=== PATIENT | male | born 1945 | race Caucasian/White ===

== ENCOUNTER → 2017-09-16 10:20 | Outpatient (CLI) | payer MEDICARE, OTHER, SELFPAY ==
[2017-09-16 12:29] LABS: ALB/GLOB Ratio 1.1 RATIO (0.9-2.4); AST(SGOT) 15 U/L (15-37); Alanine Aminotransfer ALT/SGPT 23 U/L (16-61); Albumin, Serum 3.6 g/dL (3.2-5.0); Alkaline Phosphatase 66 U/L (45-117); Anion Gap 5 (5-15); BUN 29 mg/dL (7-18); BUN/Creat Ratio 21.2 RATIO (10-20); Calcium,Total 8.9 mg/dL (8.5-10.1); Chloride 105 mmol/L (98-107); Cholesterol 140 mg/dL (200); Creatinine, Serum 1.37 mg/dL (0.70-1.30); EST Glomerular Filtration Rate 54 mL/min (>60); Est Glom Filt Rate - Afr Amer 65 mL/min (>60); Globulin 3.3 g/dL (2.2-4.2); Glucose 93 mg/dL (74-106); High Density Lipoprotein 39 mg/dL; PSA,Total - Annual Screen 7.17 ng/mL (0.00-4.00); Potassium 4.6 mmol/L (3.5-5.1); Protein, Total 6.9 g/dL (6.4-8.2); Sodium Level 140 mmol/L (136-145); Triglycerides 141 mg/dL; Very Low Density Lipoprotein 28 mg/dL (5-40)
== END ==
PROVIDERS: Family Provider Family Medicine; PCP Family Medicine; Visit Provider Family Medicine
DX: Z00.00 Encounter for general adult medical examination without abnormal findings (principal); Z12.5 Encounter for screening for malignant neoplasm of prostate
CPT/HCPCS: 36415; 80053; 80061; 84153; G0103

== ENCOUNTER 2017-09-19 16:47 | Emergency (ER) | payer MEDICARE, OTHER, SELFPAY ==
[2017-09-19 16:48] VITALS: BP 116/76; PULSE 71; RESP 16; TEMP 36.7; O2SAT 96; BMI 32.3
--- NOTE | 2017-09-19 17:11 | ED.VISSUMM ---
- ER Visit Summary Date of Service: 09/19/17 Chief Complaint: Laceration palm left hand History of Present Illness: The patient is a 71 M who is right-handed presents with laceration palm of left hand. This occurred prior to arrival. He cut himself with a box lining machine feeder. Last tetanus shot one year ago. He denies paresthesia, anesthesia motor weakness. He is on no anticoagulants. He has no other complaints. Physical Examination: Vital signs are normal. He has a 1.9 cm linear laceration thenar eminence left hand. Sensation in the thumb and index finger are normal. Patient has full active range of motion of the thumb i.e. extension, flexion, abduction and adduction. There is full flexion and extension of the index and long finger. Sensations intact. Capillary refill is normal. Test Results: Not indicated Emergency Department Course and Treatment: Patient's laceration is gaping and will require repair. The wound was prepped draped sterile manner. The wound was incised with some lidocaine by local infiltration. The wound was irrigated with normal saline. Using 5-0 Ethilon simple interrupted sutures were placed. Treatment Plan: Appropriate home-going instruction for wound care status post suturing Disposition: Discharged home in stable improved condition Impression: 1.9 cm laceration thenar eminence left hand initial encounter This note was generated with [employer] dictation software. It may contain incorrect words, spelling, and punctuation that were not noted in review of the chart prior to signing ED Disposition - Plan for ED Patient: Disposition: Home or Assisted Living Chief Complaint: Laceration Instructions: ED Laceration Hand Referrals: Malik Addison MD [Primary Care Provider] - 10 Day for suture removal Additional Instructions: Clean wound with peroxide and Q-tip 3 times a day then apply bacitracin ointment.
== END 2017-09-19 18:02 | disposition home or self-care (01) ==
PROVIDERS: Emergency Provider Emergency Medicine; Family Provider Family Medicine; PCP Family Medicine
DX: S61.412A Laceration without foreign body of left hand, initial encounter (principal); W26.8XXA Contact with other sharp object(s), not elsewhere classified, initial encounter; Y93.9 Activity, unspecified; Y92.89 Other specified places as the place of occurrence of the external cause; Y99.9 Unspecified external cause status
CPT/HCPCS: 12001; 99284

== ENCOUNTER → 2017-10-28 13:37 | Outpatient (CLI) | payer MEDICARE, OTHER, SELFPAY ==
--- NOTE | 2017-10-28 13:39 | BI_ITS ---
MAMMOGRAPHY - BILATERAL DIAGNOSTIC REASON FOR EXAM: Male, 72 years old. 3-4 month history of right breast tenderness. History of recent right breast injury. PERTINENT HISTORY: Sister with breast cancer. TECHNIQUE: Digital bilateral breast che (3D mammographic acquisition) in the CC and MLO projections. 2-D mediolateral oblique (MLO) and craniocaudad (CC) views of both breasts were obtained. CAD: Full Field Digital Mammography with Computer Added Detection was performed. COMPARISON: None. FINDINGS: Breast Composition: The breasts are almost entirely fatty. There are no dominant masses or suspicious calcifications. Increased fibroglandular tissue in the retroareolar region of the right breast as compared to the left side. This may represent gynecomastia. Correlation with ultrasound is recommended. No other significant abnormalities are identified. BI/DIAG MAMM W/CAD, BILAT IMPRESSION: Asymmetrical breast tissue were more breast tissue is seen in the retroareolar region of the right breast as compared to the left side. Correlation with ultrasound is recommended. ASSESSMENT CATEGORY: BIRADS Category 0: Incomplete. Need additional imaging evaluation. A letter regarding these results will be sent to the patient by the facility within 30 days. Approximately 10% of breast cancers are not detected by mammography. A normal mammogram should not delay biopsy of a clinically suspicious abnormality. Electronically Signed: Florencio Deleon MD at 8:07 EDT Tel [phone], Service support ,
--- NOTE | 2017-10-28 14:30 | US_ITS ---
STUDY: ULTRASOUND BREAST - RIGHT REASON FOR EXAM: Male, 72 years old. Pain in the right breast. TECHNIQUE: Axial and longitudinal images of the RIGHT breast were performed with a high resolution ultrasound transducer. COMPARISON: Comparison is made with prior mammogram done earlier today. FINDINGS: RIGHT Breast: In the retroareolar region of the breast corresponding to the palpable abnormality, there is a 1.7 cm x 2 cm x 0.6 cm irregular hypoechoic density. A biopsy is recommended. US/Breast Limited Unilateral IMPRESSION: The palpable abnormality corresponds to a 1.7 cm x 2 cm x 0.6 cm irregular hypoechoic density, a biopsy is recommended. ASSESSMENT CATEGORY: BIRADS Category 4: Suspicious - Biopsy Should Be Considered. A letter regarding these results will be sent to the patient by the facility within 30 days. Electronically Signed: Florencio Deleon MD at 8:10 EDT Tel [phone], Service support ,
== END ==
PROVIDERS: Family Provider Family Medicine; PCP Family Medicine; Visit Provider Family Medicine
DX: N64.4 Mastodynia (principal)
CPT/HCPCS: 76642; 77062; 77066; G0279

== ENCOUNTER → 2017-11-14 08:20 | Outpatient (CLI) | payer MEDICARE, OTHER, SELFPAY ==
--- NOTE | 2017-11-14 | BRBX_PTH ---
PATIENT: JESUS MANUEL MARINA LOC: [facility] U#:[id number] AGE/SX: 79/M ROOM: RE11/14/[address]: Dr. Bernard Mac MD : 1945 BED: DIS: SPEC #: [id number] RECD: 11/14/17 14:41 STATUS: ALEX NAPOLEON #: [id number] KESHA: 11/14/17 00:[address]: Bernard Mac DEPT: SURGICAL PATHOLOGY RECD BY: Victoriano Herrera ENTERED: 11/14/17 14:42 SP TYPE: BREAST BX OTHR DR: Dr. Malik Addison MD Tissues: Right breast, NOS Procedures: Surgery Specimen Level IV HEADER OPERATION: Right breast biopsy PRE-OP DIAGNOSIS: Right breast mass TISSUE SUBMITTED: Right breast tissue ISCHEMIC TIME: <1 minute FIXATION TIME: 11 hours MICROSCOPIC DIAGNOSIS Right breast mass, core biopsy: Consistent with gynecomastia. AM:dano 11/15/17 MICROSCOPIC DESCRIPTION Slides are reviewed. GROSS DESCRIPTION Received in fixative is one container labeled with the patient's name and designated right breast. The specimen consists of multiple elongated fragments of beltran-yellow fibroadipose tissue that in aggregate measure 1.5 x 0.3 x 0.1 cm. The entire specimen is submitted in one cassette. / SJ:rg 11/14/17 TC:5 CPT: 06507
== END ==
PROVIDERS: Family Provider Family Medicine; PCP Family Medicine; Visit Provider Surgery
DX: N63.10 Unspecified lump in the right breast, unspecified quadrant (principal)
CPT/HCPCS: 88305

== ENCOUNTER → 2018-01-23 14:31 | Outpatient (CLI) | payer MEDICARE, OTHER, SELFPAY ==
[2018-01-23 15:19] LABS: PSA,Total- Diagnostic 7.88 ng/mL (0.0-4.0)
== END ==
PROVIDERS: Family Provider Family Medicine; PCP Family Medicine; Visit Provider Nurse Practitioner Adult Health
DX: R97.20 Elevated prostate specific antigen [PSA] (principal)
CPT/HCPCS: 36415; 84153

== ENCOUNTER → 2018-04-19 10:07 | Outpatient (CLI) | payer MEDICARE, OTHER, SELFPAY ==
[2018-04-19 12:20] LABS: Anion Gap 9 (5-15); BUN 32 mg/dL (7-18); BUN/Creat Ratio 21.3 RATIO (10-20); Calcium,Total 8.7 mg/dL (8.5-10.1); Chloride 105 mmol/L (98-107); Cholesterol 166 mg/dL (200); EST Glomerular Filtration Rate 49 mL/min (>60); Est Glom Filt Rate - Afr Amer 59 mL/min (>60); Glucose 76 mg/dL (74-106); High Density Lipoprotein 39 mg/dL; Potassium 4.5 mmol/L (3.5-5.1); Sodium Level 143 mmol/L (136-145); Triglycerides 186 mg/dL; Very Low Density Lipoprotein 37 mg/dL (5-40)
--- OUTSIDE RECORDS SUMMARY | 2018-06-05 10:27 | XMS RPT_ITS ---
:1945 Author Organization OHIP Care Team Providers Name Role Phone Malik Addison Attending Unavailable Malik Addison Primary Care Unavailable Malik Addison Attending Unavailable Malik Addison Primary Care Unavailable Malik Addison Primary Care Unavailable Elder, Fuad Attending Unavailable Alma Macedo Attending Unavailable Malik Addison Primary Care Unavailable Malik Addison Attending Unavailable Malik Addison Primary Care Unavailable Bernard Mac Attending Unavailable Malik Addison Referring Unavailable Malik Addison Primary Care Unavailable Bernard Mac Attending Unavailable CeBernard jimenez Referring Unavailable Malik Addison Primary Care Unavailable Bernard Mac Attending Unavailable Malik Addison Referring Unavailable Malik Addison Primary Care Unavailable PROBLEMS PROBLEMS DATE TYPE CONDITION / CODE ATTENDING STATUS SOURCE 04/19/2018 Unknown E78.00 - Malik Vigil Active [facility] hypercholesterole [facility] june, unspecified Hospital / E78.00(ICD-10) Repository 04/19/2018 Unknown E87.6 - Malik Addison Active [facility] Hypokalemia / Community E87.6(ICD-10) Hospital Repository 01/23/2018 Unknown R97.20 - Elevated RemingtonAlma larson Active [place] prostate specific M Community antigen [PSA] / Hospital R97.20(ICD-10) Repository 11/14/2017 Unknown N63.10 - CebuBernard zee Active [facility] Unspecified lump Community in the right Hospital breast, Repository unspecified quadrant / N63.10(ICD-10) 10/28/2017 Unknown N64.4 - Malik Addison Active [facility] Mastodynia / Community N64.4(ICD-10) Hospital Repository PROCEDURES PROCEDURES No Procedure Records FoundRESULTS RESULTS BASIC METABOLIC Collected: 04/19/2018 Status: F Source: [place] PROFILE (BMP) 10:08 AM [facility] REPOSITORY TYPE CODE TESTS RESULT OUT OF RANGE REFERENCE UNITS LAB L501.0100 74-106 mg/dL Normal GLU 76 Result Comment: Please note revised GLUCOSE reference range effective 2017. LAB L501.1000 7-18 mg/dL High BUN 32 LAB L501.1100 0.70-1.30 mg/dL High CREAT,SERUM 1.50 Result Comment: The validity of the calculated GFR AND GFRAA in patients over 70 years has not been determined. Clinical correlation is essential. LAB L501.1110 >60 mL/min Low EST GFR 49 Result Comment: Non- GFR Calc LAB L501.1115 >60 mL/min Low EST GFR - AA 59 Result Comment: GFR Calc LAB L501.1300 10-20 RATIO High BUN/CRE 21.3 LAB L501.2200 8.5-10.1 mg/dL CA Normal 8.7 LAB L501.5300 136-145 mmol/L NA Normal 143 LAB L501.5600 3.5-5.1 mmol/L K Normal 4.5 LAB L501.5900 98-107 mmol/L CL Normal 105 LAB L501.6100 21.0-32.0 mmol/L Normal CO2 29.0 LAB L501.6200 5-15 Normal GAP 9 Performed By: #### L500.2500, L500.4100 #### [facility] [address] [place], [address] LIPID PROFILE Collected: 04/19/2018 Status: F Source: [place] 10:08 AM [facility] REPOSITORY TYPE CODE TESTS RESULT OUT OF RANGE REFERENCE UNITS LAB L501.4900 200 mg/dL Normal CHOL 166 Result Comment: <200 mg/dL Desirable 200-240 mg/dL Borderline >240 mg/dL High Risk LAB L501.5000 mg/dL Normal TRIG 186 Result Comment: The drugs N-Acetylcysteine and Metamizole may falsely depress this assay. Serum Triglycerides Reference Interval Normal <150 mg/dL Borderline high 150 - 199 mg/dL High 200 - 499 mg/dL Very High > or = 500 mg/dL LAB L501.6400 mg/dL Low HDL 39 Result Comment: The drugs N-Acetylcysteine and Metamizole may falsely depress this assay. Reference Range HDL <40 mg/dL Low HDL Cholesterol HDL >or= 60 mg/dL High HDL Cholesterol LAB L501.6500 0-130 mg/dL Normal LDL 90 LAB L501.6600 5-40 mg/dL Normal VLDL 37 Performed By: #### L500.2500, L500.4100 #### [facility] [address] [place], [address] PSA,TOTAL- DIAGNOSTIC Collected: 01/23/2018 Status: F Source: [place]ARA 2:37 PM [facility] REPOSITORY TYPE CODE TESTS RESULT OUT OF REFERENCE UNITS RANGE LAB L501.9940 0.0-4.0 ng/mL PSA, High DIAGNOSTIC 7.88 Result Comment: This test was performed using the TPSA assay method for the [employer] chemistry system. Values obtained with different assay methods cannot be used interchangably. When changing PSA assays in the course of monitoring a patient, additional sequential testing should be carried out to confirm baseline values. Performed By: #### L501.9940 #### [facility] [address] [place], [address] SURGERY VISIT REPORT Observed: 01/04/2018 Status: F Source: CLARA 7:04 PM [facility] REPOSITORY [facility] [address] [place] [address] OFFICE VISIT Date of Service: 01/04/18 MR#: [id number] Acct: [id number] Name: JESUS MANUEL MARINA Rep #: [id number] : 1945 Provider: Bernard Mac MD Age/Sex: 72/M Location: [facility] Status: Signed Intake Intake Visit Reasons: Rt Breast FNA FU Discuss Surgery Teacher Aide Required: No Is patient in pain?: No Allergies Penicillins [PCN] Allergy (Verified 01/04/18 14:39) Hives Medications gabapentin 300 mg capsule 300 mg PO TID 11/14/17 [History Confirmed 01/04/18] meloxicam 15 mg tablet 15 mg PO QDAY 11/14/17 [History Confirmed 01/04/18] metoprolol succinate ER 100 mg tablet,extended release 24 hr 100 mg PO QDAY 11/14/17 [History Confirmed 01/04/18] pantoprazole 40 mg tablet,delayed release 40 mg PO QDAY 11/14/17 [History Confirmed 01/04/18] potassium chloride ER 20 mEq tablet,extended release 20 meq PO BID 11/14/17 [History Confirmed 01/04/18] simvastatin 20 mg tablet 20 mg PO QPM 11/14/17 [History Confirmed 01/04/18] spironolactone 25 mg tablet 25 mg PO QDAY 11/14/17 [History Confirmed 01/04/18] tadalafil 5 mg tablet 5 mg PO ONCE 11/14/17 [History Confirmed 01/04/18] terazosin 5 mg capsule 5 mg PO QDAY 11/14/17 [History Confirmed 01/04/18] trazodone 100 mg tablet 100 mg PO QDAY 11/14/17 [History Confirmed 01/04/18] Subjective Details: This is a 72-year-old gentleman. On November 14, 2017 I did a guided needle core right breast biopsy. Findings gynecomastia. The patient had a ultrasound done at the [facility] on November 01, 2017. The lesion measured 1.7 x 2 x 0.6 cm. Initially got better. Now is having more pain. Returns for discussion. Today was a 30 minute discussion. Objective Details: Right breast rubbery mild slightly tender retroareolar mass with diffuse fibrofatty change of the right breast Left breast: Less distinct fibrofatty tissue. No particular tenderness. Assessment AND Plan Problems 1. Gynecomastia N62 Plan Today was a 30 minute consultative appointment. The patient has symptomatic gynecomastia of the right breast. On review his medications however he is on Spironolactone. I believe that prior to surgical intervention with subcutaneous mastectomy on the right that he should pursue consultation with Dr. Malik Addison regarding treatment options. Wonder if whether his Spironolactone which may be etiologic to his gynecomastia could be altered to a different medication. I did discuss right substance mastectomy. Patient was interested in whether a more aggressive resection could be performed. That would leave him asymptomatic. He does have a significant amount of fibrofatty tissue in both breasts. At the completion of the discussion I think it is pertinent for him to follow-up with primary care Dr. Malik Addison. I would have no way to guarantee that working on his right breast with completely resolve his issues and he may then develop symptomatic disease on the left as well. I am wondering whether he can have a medicine change it might resolve his issues. I appreciate the opportunity of assisting with surgical care Cc: Dr. Malik Mac M.D., F.A.C.S. Coding Level of Care Code Off vis,est,level 3 Diagnoses Gynecomastia N62 01/04/18 1904 <Electronically signed by Bernard Mac MD> Date Bernard Mac MD Cosigner Signature: Date (if applicable) CC: Malik Addison MD SURGERY VISIT REPORT Observed: 11/14/2017 Status: F Source: CLARA 8:51 AM [facility] [address] [place] [address]. [address] [place] [address] OFFICE VISIT Date of Service: 11/14/17 MR#: [id number] Acct: [id number] Name: JESUS MANUEL MARINA Rep #: [id number] : 1945 Provider: Bernard Mac MD Age/Sex: 72/M Location: [facility] Status: Signed Intake Vital Signs11/14/17 Height 5 ft 10 in 11/14/17 Weight: 229 lb 11/14/17 Body Mass Index (BMI) 32.8 Intake Visit Reasons: ABNORMAL US [facility] 10/28 Teacher Aide Required: No Is patient in pain?: No Allergies Penicillins [PCN] Allergy (Verified 11/14/17 08:01) Hives Medications gabapentin 300 mg capsule 300 mg PO TID 11/14/17 [History Confirmed 11/14/17] meloxicam 15 mg tablet 15 mg PO QDAY 11/14/17 [History Confirmed 11/14/17] metoprolol succinate ER 100 mg tablet,extended release 24 hr 100 mg PO QDAY 11/14/17 [History Confirmed 11/14/17] pantoprazole 40 mg tablet,delayed release 40 mg PO QDAY 11/14/17 [History Confirmed 11/14/17] potassium chloride ER 20 mEq tablet,extended release 20 meq PO BID 11/14/17 [History Confirmed 11/14/17] simvastatin 20 mg tablet 20 mg PO QPM 11/14/17 [History Confirmed 11/14/17] spironolactone 25 mg tablet 25 mg PO QDAY 11/14/17 [History Confirmed 11/14/17] tadalafil 5 mg tablet 5 mg PO ONCE 11/14/17 [History Confirmed 11/14/17] terazosin 5 mg capsule 5 mg PO QDAY 11/14/17 [History Confirmed 11/14/17] trazodone 100 mg tablet 100 mg PO QDAY 11/14/17 [History Confirmed 11/14/17] [facility] Medical History Hyperlipidemia (Chronic) Benign essential hypertension (Chronic) GERD (gastroesophageal reflux disease) (Acute) Surgical History H/O transurethral resection of prostate (Acute) H/O umbilical hernia repair (Acute) S/P bilateral inguinal hernia repair (Acute) S/P laparoscopic cholecystectomy (Acute) Family History Father Heart disease Hypertension Mother Diabetes Hypertension Sister Breast cancer Heart disease Social History Smoking Status: Former smoker alcohol intake: current alcohol intake frequency: holidays/special occasions only HPI HPI HPI: JESUS MANUEL MARINA, is a 72 M who presents to the office today for surgical consultation regarding a right breast mass. The patient is referred by Dr. Malik Addison and a written copy of my surgical consult recommendations will be returned to him. The patient resides over the winter in [place]. He was working with a board that then hit him in the right breast approximately 4 months ago. Since that time it is been tender. He did seek medical advice there and was placed on a course of antibiotics. Patient states that he never really felt a distinct mass but it has persisted being tender. Initially thought antibiotics might of improve things but now it has remained constant. He does have hyperlipidemia and hypertension and is on appropriate medications. At the [facility] on October 28, 2017 a right breast ultrasound BI-RADS Category 4 biopsy recommended because of 1.7 x 2 x 0.6 cm irregular hypoechoic density in the right retroareolar breast. Bilateral mammography was also obtained on October 28, 2017. Asymmetric breast tissue on the right retroareolar area was noted. This was not identified on the left. Patient's family history is notable that the patient has a sister who had breast cancer. The patient's mother had breast surgery sounding like a lumpectomy but final pathology did not confirm cancer. The patient's only anticoagulation is a low-dose aspirin. ROS General General: No weight change, appetite, fatigue, colon cancer, breast cancer or weakness HEENT HEENT: Yes eye injury and eye surgery; no difficulty swallowing, swollen glands or hoarseness Endo Endocrine: No thyroid disease, diabetes mellitus, thyroid cancer, Hair loss, heat intolerance or cold intolerance Skin Skin: Yes changing moles; no rash Breast Breast: Yes right breast lump; no left breast lump, nipple discharge, breast pain, abnormal mammogram, abnormal US or breast enlargement Musc Musculoskeletal: Yes back problems and arthritis; no rheumatoid arthritis, gout or joint pain Cardio Cardiovascular: Yes high blood pressure; no murmur, pacemaker, heart disease, atrial fibrillation, heart attack, heart stent, palpitations, shortness of breat with exertion or chest pain Psych Psychiatric: No depression, anxiety or hearing voices Resp Respiratory: No shortness of breath, No sleep apnea, No cough, No COPD, No asthma, No emphysema, No wheezing Gastro Gastrointestinal: Yes acid reflux, No abdominal pain, No nausea or vomiting, No diarrhea, No constipation, No blood in stool, No hemorrhoids, No ulcers, No gallbladder problem, No black,tarry stools Paulo Hematologic: Yes blood thinners, No blood disorders, No bleeding, No anemia, No blood clots Neuro Neurologic: No system reviewed and no additional complaints, except as docu, No as per HPI, No abnormal walking, No abnormal hearing, No abnormal movements, No abnormal speech, No behavioral changes, No burning sensations, No confusion, No seizure-like activity, No unsteadiness, No dizziness, No localized weakness, No frequent falls, No headache(s), No lack of coordination, No loss of vision, No memory loss, No numbness, No other visual disturbances, No radiating pain, No restless legs, No sensory deficit, No fainting, No tingling, No tremor(s), No weakness, No other Exam Chest Breast Palpation: No nipple discharge Other: Right breast: Slightly tender with nondescript fibrous retroareolar fullness. No nipple discharge. Some slight right axillary tenderness but no focal mass. Left breast: No similar fibrous fullness is on the right but some extra fibrofatty tissue. No axillary or clavicular adenopathy Cardio Heart Sounds: no murmurs Office Procedures Biopsy Provider Documentation Ultrasound-guided needle core right retroareolar breast biopsy Timeout and informed consent was obtained. 72-year-old gentleman was taken to the procedure room. He was placed on the table. A right shoulder roll was placed. The right breast was prepped with Betadine. 1% lidocaine mixed 50-50 with 0.5% Marcaine was used as a local anesthetic. Total of 10 cc was used. A small stab incision was created. A 14-gauge Monopty needle was advanced to prefire depth. Pre-and post fire films were obtained. 3 separate cores were obtained. A marking clip was left in position. Pressure was held for hemostasis. Steri-Strips Telfa OpSite dressings applied. He was given activity and wound care instructions. The specimens were immediately placed in formalin for analysis. Final pathology pending. Bernard Mac M.D., F.A.C.S. Biopsy Breast Biopsy: [id number] US Guidance Assessment AND Plan Problems 1. Breast mass, right N63.10 Plan I have reviewed the patient's presentation and imaging. His history of blunt trauma to the right breast is interesting but should have resolved after 4 months. I am recommending to him a ultrasound-guided needle core biopsy right retroareolar breast. I have described the technique, benefits, risks, alternatives. He has had an opportunity to ask and have questions answered. We will proceed and expedite his care today. I appreciate the opportunity of assisting with his surgical care He I am suspecting gynecomastia. If the pathology is consistent with the same and the patient may continue to utilize [id number]-[id number] medicine as needed for comfort. If the process remains symptomatic for more weeks and months in the future then we could consider a right breast subcutaneous mastectomy for gynecomastia. The patient and his are aware and will keep me informed. Cc: Dr. Azael Mac M.D., F.A.C.S. Orders Orders: Coding Level of Care Code No Charge Diagnoses Breast mass, right N63.10 Additional Codes Biopsy - Breast Biopsy: 92007 US Guidance (49911) 11/14/17 0851 <Electronically signed by Bernard Mac MD> Date Bernard Mac MD Cosigner Signature: Date (if applicable) CC: Malik Addison MD BREAST BIOPSY Observed: 11/14/2017 Status: F Source: CLARA (CHOOSE SITE) 12:00 AM [facility] REPOSITORY Patient: JESUS MANUEL MARINA : 1945 (72/M) Acct Num: [id number] Phys: Estefania FINE,Bernard [facility] Num: [id number] Loc: LABSPEC Specimen: [id number] Received: 11/14/17 - 1441 Spec Type: BREAST BX TISSUES TISSUES: Right breast, NOS GROSS DESCRIPTION Received in fixative is one container labeled with the patient's name and designated right breast. The specimen consists of multiple elongated fragments of beltran-yellow fibroadipose tissue that in aggregate measure 1.5 x 0.3 x 0.1 cm. The entire specimen is submitted in one cassette. / SJ:dano 11/14/17 TC :5 CPT: 26267 HEADER OPERATION: Right breast biopsy PRE-OP DIAGNOSIS: Right breast mass TISSUE SUBMITTED: Right breast tissue ISCHEMIC TIME: <1 minute FIXATION TIME: 11 hours MICROSCOPIC DESCRIPTION Slides are reviewed. MICROSCOPIC DIAGNOSIS Right breast mass, core biopsy: Consistent with gynecomastia. AM:dano 11/15/17 Signed [facility] 11/15/17 <signature on file> Performed By: #### PBRBX #### [facility] [address] [place], [place] [address]am[place], [address] BREAST LIMITED Observed: 10/28/2017 Status: F Source: [place] UNILATERAL 2:31 PM [facility] REPOSITORY [facility] Imaging Services [address] [place] [address] [place] [address] Breast Limited Unilateral MR#: [id number] Acct: [id number] Name: JESUS MANUEL MARINA Rep #: [id number] : 1945 M 72 From: Florencio Deleon MD PCP: Malik Addison MD Status: REG CLI Study: Breast Limited Unilateral Date of Exam: 10/28/17 Exam# [id number] Ordering Dr: Mailk Addison MD STUDY: ULTRASOUND BREAST - RIGHT REASON FOR EXAM: Male, 72 years old. Pain in the right breast. TECHNIQUE: Axial and longitudinal images of the RIGHT breast were performed with a high resolution ultrasound transducer. COMPARISON: Comparison is made with prior mammogram done earlier today. FINDINGS: RIGHT Breast: In the retroareolar region of the breast corresponding to the palpable abnormality, there is a 1.7 cm x 2 cm x 0.6 cm irregular hypoechoic density. A biopsy is recommended. US/Breast Limited Unilateral IMPRESSION: The palpable abnormality corresponds to a 1.7 cm x 2 cm x 0.6 cm irregular hypoechoic density, a biopsy is recommended. ASSESSMENT CATEGORY: BIRADS Category 4: Suspicious - Biopsy Should Be Considered. A letter regarding these results will be sent to the patient by the facility within 30 days. Electronically Signed: Florencio Deleon MD at 8:10 EDT Tel [phone], Service support , CC: Malik Addison MD Wind Operations Manager: Signed DIAG MAMM W/CAD, Observed: 10/28/2017 Status: F Source: [place] BILAT 1:41 PM [facility] REPOSITORY [facility] Imaging Services [address] [place] [id number] DIAG MAMM W/CAD, BILAT MR#: [id number] Acct: [id number] Name: JESUS MANUEL MARINA Rep #: [id number] : 1945 M 72 From: Florencio Deleon MD PCP: Malik Addison MD Status: REG CLI Study: DIAG MAMM W/CAD, BILAT Date of Exam: 10/28/17 Exam# [id number] Ordering Dr: Malik Addison MD MAMMOGRAPHY - BILATERAL DIAGNOSTIC REASON FOR EXAM: Male, 72 years old. 3-4 month history of right breast tenderness. History of recent right breast injury. PERTINENT HISTORY: Sister with breast cancer. TECHNIQUE: Digital bilateral breast che (3D mammographic acquisition) in the CC and MLO projections. 2-D mediolateral oblique (MLO) and craniocaudad (CC) views of both breasts were obtained. CAD: Full Field Digital Mammography with Computer Added Detection was performed. COMPARISON: None. FINDINGS: Breast Composition: The breasts are almost entirely fatty. There are no dominant masses or suspicious calcifications. Increased fibroglandular tissue in the retroareolar region of the right breast as compared to the left side. This may represent gynecomastia. Correlation with ultrasound is recommended. No other significant abnormalities are identified. BI/DIAG MAMM W/CAD, BILAT IMPRESSION: Asymmetrical breast tissue were more breast tissue is seen in the retroareolar region of the right breast as compared to the left side. Correlation with ultrasound is recommended. ASSESSMENT CATEGORY: BIRADS Category 0: Incomplete. Need additional imaging evaluation. A letter regarding these results will be sent to the patient by the facility within 30 days. Approximately 10% of breast cancers are not detected by mammography. A normal mammogram should not delay biopsy of a clinically suspicious abnormality. Electronically Signed: Florencio Deleon MD at 8:07 EDT Tel [phone], Service support , CC: Malik Addison MD Wind Operations Manager: Signed EMERGENCY DEPARTMENT Observed: 09/19/2017 Status: F Source: [place] SUMMARY 5:39 PM [facility] REPOSITORY [facility] Medical Records Department [address] [place] [address] Emergency Department Summary 09/19/17 1711 MR#: [id number] Acct: [id number] Name: JESUS MANUEL MARINA Rep #: [id number] : 1945 71 From: Fuad Elder MD PCP: Malik Addison MD Status: REG ER - ER Visit Summary Date of Service: 09/19/17 Chief Complaint: Laceration palm left hand History of Present Illness: The patient is a 71 M who is right- handed presents with laceration palm of left hand. This occurred prior to arrival. 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 Last tetanus shot one year ago. He denies paresthesia, anesthesia motor weakness. He is on no anticoagulants. He has no other complaints. Physical Examination: Vital signs are normal. He has a 1.9 cm linear laceration thenar eminence left hand. Sensation in the thumb and index finger are normal. Patient has full active range of motion of the thumb i.e. extension, flexion, abduction and adduction. There is full flexion and extension of the index and long finger. Sensations intact. Capillary refill is normal. Test Results: Not indicated Emergency Department Course and Treatment: Patient's laceration is gaping and will require repair. The wound was prepped draped sterile manner. The wound was incised with some lidocaine by local infiltration. The wound was irrigated with normal saline. Using 5-0 Ethilon simple interrupted sutures were placed. Treatment Plan: Appropriate home-going instruction for wound care status post suturing Disposition: Discharged home in stable improved condition Impression: 1.9 cm laceration thenar eminence left hand initial encounter This note was generated with [employer]Wu dictation software. It may contain incorrect words, spelling, and punctuation that were not noted in review of the chart prior to signing ED Disposition - Plan for ED Patient: Disposition: Home or Assisted Living Chief Complaint: Laceration Instructions: ED Laceration Hand Referrals: Malik Addison MD [Primary Care Provider] - 10 Day for suture removal Additional Instructions: Clean wound with peroxide and Q-tip 3 times a day then apply bacitracin ointment. What to do if you have Problems For any increased pain, shortness of breath, bleeding, nausea or vomiting, chest pain, or any unexpected problems, contact your Primary Care Provider. Call [facility] ([phone]) or report to the closest Emergency Room. Call 911 if necessary. 09/19/17 1739 <Electronically signed by Fuad Elder MD> Date Fuad Elder MD Cosigner Signature (If Indicated): Date CC: Malik Addison MD COMPREHENSIVE METABOLIC Collected: 09/16/2017 Status: F Source: [place] PEREZ 10:21 AM [facility] REPOSITORY TYPE CODE TESTS RESULT OUT OF RANGE REFERENCE UNITS LAB L501.0100 74-106 mg/dL Normal GLU 93 Result Comment: Please note revised GLUCOSE reference range effective 2017. LAB L501.1000 7-18 mg/dL High BUN 29 LAB L501.1100 0.70-1.30 mg/dL High CREAT,SERUM 1.37 Result Comment: The validity of the calculated GFR AND GFRAA in patients over 70 years has not been determined. Clinical correlation is essential. LAB L501.1110 >60 mL/min Low EST GFR 54 Result Comment: Non- GFR Calc LAB L501.1115 >60 mL/min Normal EST GFR - AA 65 Result Comment: GFR Calc LAB L501.1300 10-20 RATIO High BUN/CRE 21.2 LAB L501.1500 6.4-8.2 g/dL T Normal PROT 6.9 LAB L501.1800 3.2-5.0 g/dL Normal ALB 3.6 LAB L501.1950 2.2-4.2 g/dL Normal GLOB 3.3 LAB L501.2000 0.9-2.4 RATIO Normal A/G 1.1 LAB L501.2200 8.5-10.1 mg/dL CA Normal 8.9 LAB L501.4100 15-37 U/L Normal AST 15 LAB L501.4305 45-117 U/L Normal ALK P 66 LAB L501.4405 16-61 U/L Normal ALT 23 LAB L501.4600 0.20-1.00 mg/dL T Normal BILI 0.60 LAB L501.5300 136-145 mmol/L NA Normal 140 LAB L501.5600 3.5-5.1 mmol/L K Normal 4.6 LAB L501.5900 98-107 mmol/L CL Normal 105 LAB L501.6100 21.0-32.0 mmol/L Normal CO2 30.0 LAB L501.6200 5-15 Normal GAP 5 Performed By: #### L500.4050, L500.4100, L501.9910 #### [place] [facility] [address] [place], [place], [id number] LIPID PROFILE Collected: 09/16/2017 Status: F Source: CLARA 10:21 AM [facility] REPOSITORY TYPE CODE TESTS RESULT OUT OF RANGE REFERENCE UNITS LAB L501.4900 200 mg/dL Normal CHOL 140 Result Comment: <200 mg/dL Desirable 200-240 mg/dL Borderline >240 mg/dL High Risk LAB L501.5000 mg/dL Normal TRIG 141 Result Comment: The drugs N-Acetylcysteine and Metamizole may falsely depress this assay. Serum Triglycerides Reference Interval Normal <150 mg/dL Borderline high 150 - 199 mg/dL High 200 - 499 mg/dL Very High > or = 500 mg/dL LAB L501.6400 mg/dL Low HDL 39 Result Comment: The drugs N-Acetylcysteine and Metamizole may falsely depress this assay. Reference Range HDL <40 mg/dL Low HDL Cholesterol HDL >or= 60 mg/dL High HDL Cholesterol LAB L501.6500 0-130 mg/dL Normal LDL 73 LAB L501.6600 5-40 mg/dL Normal VLDL 28 Performed By: #### L500.4050, L500.4100, L501.9910 #### [facility] [address] [place], [address] PSA,TOTAL - ANNUAL Collected: 09/16/2017 Status: F Source: CLARA SCREEN 10:21 AM [facility] REPOSITORY TYPE CODE TESTS RESULT OUT OF REFERENCE UNITS RANGE LAB L501.9910 0.00-4.00 ng/mL High PSA,TOT 7.17 SCREEN Result Comment: This test was performed using the TPSA assay method for the [employer] chemistry system. Values obtained with different assay methods cannot be used interchangably. When changing PSA assays in the course of monitoring a patient, additional sequential testing should be carried out to confirm baseline values. Performed By: #### L500.4050, L500.4100, L501.9910 #### [facility] [address] [place], [address] ALLERGIES ALLERGIES DATE TYPE / CODE NAME / CODE REACTION SEVERITY SOURCE 01/04/2018 Drug Penicillins/ Hives Unknown [facility] Allergy/4160 [id number]( Hospital 42812(SNOMED XNORM) Repository CT) ENCOUNTERS ENCOUNTERS ADMIT/DISCHARGE ACCOUNT ADMITTING ENCOUNTER LOCATION SOURCE NUMBER CLASS 04/19/2018 [id number] Ambulatory [place] 2 [facility] ing:MFPLAB Repository 01/23/2018 [id number] Ambulatory [place] 3 [facility] ing:LAB.FUTUR Repository E 01/04/2018/ [id number] Ambulatory BMSBuilding:B [place] 8 1 [facility] Repository 11/14/2017 [id number] Ambulatory [place] 4 [facility] ing:LABSPEC Repository 11/14/2017/ [id number] Ambulatory BMSBuilding:B [place] 8 4 MS.[facility] Repository 10/28/2017 [id number] Ambulatory [place] 1 [facility] ing:OPBI Repository 09/19/2017/ [id number] Emergency [place] 8 6 [facility] ing:ED Repository 09/16/2017 [id number] Ambulatory [place] 9 [facility] ing:MFPLAB Repository PAYERS PAYERS ENCOUNTER GUARANTOR PAYER SUBSCRIBER SOURCE 04/19/2018 JESUS MANUEL E Primary JESUS MANUEL E [place] [id number] Insurance:MEDICARE BADERTSCHERDOB: [facility] FIVE POINTS PART A [facility] [id number] Number: Repository [id number]: [phone] [id number] [phone] () Date:2018-04-19 04/19/2018 Secondary JESUS MANUEL E [place] Insurance[facility] GilbertVILMAB: [facility] Number: [id number] [facility] [id number] Repository Date:1330-10-01[address]FVG, [place] [address]VY: 04/19/2018 Tertiary NOT GIVENUNK [place] Insurance:SELF PAY [facility] Number: Effective Repository Date:2018-04-19 01/23/2018 JESUS MANUEL E Primary JESUS MANUEL E [place] [id number] Insurance:MEDICARE BADERTSCHERDOB: [facility] FIVE POINTS PART A [facility] [id number] Number: Repository [address]Ugw: 330 [id number] [phone] (HP) Date:2017-09-30 01/23/2018 Secondary JESUS MANUEL E [place] Insurance:AARPPolicy BADERTSCHERDOB: Community Number: [id number] [facility] [id number] Repository Date:0582-46-66QD [address]JJTZP, [place] [address]WZ: 01/23/2018 Tertiary NOT GIVENUNK [place] Insurance:SELF PAY [facility]: Effective Repository Date:2017-09-30 01/04/2018 JESUS MANUEL E Primary JESUS MANUEL E [place] [id number] Insurance:MEDICARE BADERTSCHERDOB: Community FIVE POINTS PART A [facility] [id number] Number: Repository [address]Mfd: 330 [id number] [phone] () Date:2018-01-02 01/04/2018 Secondary JESUS MANUEL E [place] Insurance:AARPPolicy BADKEENACHERDOB: Community Number: [id number] Hospital [id number] Repository Date:9070-79-95[address]SQVJLPZ, [place] [address]GK: 01/04/2018 Tertiary NOT GIVENUNK [place] Insurance:SELF PAY [facility] Number: Effective Repository Date:2018-01-04 11/14/2017 JESUS MANUEL E Primary JESUS MANUEL E [place] [id number] Insurance:MEDICARE BADERTSCHERDOB: Community FIVE POINTS PART A [facility] [id number] Number: Repository [address]Off: 330 [id number] [phone] () Date:2017-11-14 11/14/2017 Secondary JESUS MANUEL E [place] Insurance:AARPPolicy BADERTSCHERDOB: Community Number: [id number] Hospital [id number] Repository Date:7508-04-20ES [facility] [address]1924PTPSZDQ, [place] [address]LV: 11/14/2017 Tertiary NOT GIVENUNK [place] Insurance:SELF PAY [facility] Number: Effective Repository Date:2017-11-14 11/14/2017 JESUS MANUEL E Primary JESUS MANUEL E [place] [id number] Insurance:MEDICARE BADERTSCHERDOB: Community FIVE POINTS PART A [facility] [id number] [place] Number: Repository [address]Wsa: 330 [id number] [phone] (HP) Date:2017-10-31 11/14/2017 Secondary JESUS MANUEL E [place] Insurance:AARPPolicy BADERTSCHERDOB: Community Number: [id number] Hospital [id number] Repository Date:8700-90-26GJ [address]USXE, [place] [address]OR: 11/14/2017 Tertiary NOT GIVENUNK [place] Insurance:SELF PAY [facility] Number: Effective Repository Date:2017-11-14 10/28/2017 Jesus Manuel E Primary Jesus Manuel E [place] [id number] Insurance:MEDICARE BadertscherDOB: Community [place] PART A [facility] [id number], [place] Number: Repository [address]Zfl: 330 [id number] [phone] (HP) Date:2017-10-13 10/28/2017 Secondary Jesus Manuel E [place] Insurance:AARPPolicy BadertscherDOB: Community Number: [id number] [facility] [id number] Repository Date:0719-32-10[address]FXAJP, [place] [address]FH: 10/28/2017 Tertiary NOT GIVENUNK [place] Insurance:SELF PAY [facility] Number: Effective Repository Date:2017-10-13 09/19/2017 Jesus Manuel E Primary Jesus Manuel E [place] [id number] Insurance:MEDICARE BadertscherDOB: Community [place] PART A [id number] [place] Number: Repository [address]Fge: 330 [id number] [phone] (HP) Date:2017-09-19 09/19/2017 Secondary Jesus Manuel E [place] Insurance:AARPPolicy BadertscherDOB: Community Number: [id number] [place] [address] [id number] Repository Date:6236-38-10AI [address]WVQ, [place] [address]PJ: 09/19/2017 Tertiary NOT GIVENUNK [place] Insurance:SELF PAY [facility] Number: Effective Repository Date:2017-09-19 09/16/2017 Jesus Manuel E Primary Jesus Manuel E [place] [id number] Insurance:MEDICARE [facility]: [facility] [place] PART A [facility] [id number] Number: Repository [address]Cnd: (006) [id number] [phone] () Date:2017-09-16 09/16/2017 Secondary Jesus Manuel [place] [facility] Number: [id number] Hospital [id number] Repository Date:9509-36-34RI [facility] [address]75473JTPAP[place], [place] [address]HH: 09/16/2017 Tertiary NOT GIVENUNK [place] Insurance:SELF PAY [facility] Number: Effective Repository Date:2017-09-16
== END ==
PROVIDERS: Family Provider Family Medicine; PCP Family Medicine; Visit Provider Family Medicine
DX: E78.00 Pure hypercholesterolemia, unspecified (principal); E87.6 Hypokalemia
CPT/HCPCS: 36415; 80048; 80061

== ENCOUNTER → 2018-09-12 10:35 | Outpatient (CLI) | payer MEDICARE, OTHER, SELFPAY ==
[2017-11-14 08:01] VITALS: BMI 32.8
== END ==
PROVIDERS: Family Provider Family Medicine; PCP Family Medicine; Referring Provider Family Medicine; Visit Provider Urology
DX: R97.20 Elevated prostate specific antigen [PSA] (principal)
CPT/HCPCS: 36415; 84153

== ENCOUNTER → 2018-10-12 | Outpatient (CLI) | payer MEDICARE, OTHER, SELFPAY ==
[2017-11-14 08:01] VITALS: BMI 32.8
[2018-10-12 12:36] LABS: Anion Gap 6 (5-15); BUN 27 mg/dL (7-18); BUN/Creat Ratio 20.1 RATIO (10-20); Calcium,Total 8.3 mg/dL (8.5-10.1); Chloride 107 mmol/L (98-107); Cholesterol 147 mg/dL (200); Creatinine, Serum 1.34 mg/dL (0.70-1.30); EST Glomerular Filtration Rate 55 mL/min (>60); Est Glom Filt Rate - Afr Amer 67 mL/min (>60); Glucose 74 mg/dL (74-106); High Density Lipoprotein 38 mg/dL; Potassium 4.5 mmol/L (3.5-5.1); Sodium Level 141 mmol/L (136-145); Triglycerides 175 mg/dL; Very Low Density Lipoprotein 35 mg/dL (5-40)
[2018-10-12 14:14] LABS: Vitamin D,25 Hydroxy 29.8 ng/mL (29.95-100.01)
== END | disposition home or self-care (01) ==
LOC: MFPLAB 10:29
PROVIDERS: Family Provider Family Medicine; PCP Family Medicine; Referring Provider Family Medicine; Visit Provider Family Medicine
DX: Z00.00 Encounter for general adult medical examination without abnormal findings (principal); E55.9 Vitamin D deficiency, unspecified
CPT/HCPCS: 36415; 80048; 80061; 82306

== ENCOUNTER → 2018-10-17 08:00 | Outpatient (CLI) | payer MEDICARE, OTHER, SELFPAY ==
[2017-11-14 08:01] VITALS: BMI 32.8
--- NOTE | 2018-10-17 08:00 | PROSBIL_PTH ---
PATIENT: JESUS MANUEL MARINA LOC: [facility] U#:[id number] AGE/SX: 79/M ROOM: RE10/17/[address]: Dr. Jos Marc MD : 1945 BED: DIS: SPEC #: [id number] RECD: 10/18/18 16:23 STATUS: ALEX NAPOLEON #: [id number] KESHA: 10/17/18 08:[address]: Jos Marc DEPT: SURGICAL PATHOLOGY RECD BY: Danny Barragan ENTERED: 10/18/18 11:40 SP TYPE: PROST BX RAMONA DR: Dr. Malik Addison MD Tissues: A - PROSTATE RIGHT B - PROSTATE RIGHT C - PROSTATE RIGHT D - PROSTATE LEFT E - PROSTATE LEFT F - PROSTATE LEFT Procedures: PROSTATE BX HEADER OPERATION: Prostate biopsy PRE-OP DIAGNOSIS: R97.20 TISSUE SUBMITTED: A - Right apex, B - Right mid, C - Right base, D - Left apex, E - Left mid, F - Left base MICROSCOPIC DIAGNOSIS A. Right prostate, apex, core biopsy: Prostatic tissue, negative for malignancy. B. Right prostate, mid, core biopsy: Prostatic tissue, negative for malignancy. Focal mild chronic inflammation. C. Right prostate, base, core biopsy: Prostatic tissue, negative for malignancy. D. Left prostate, apex, core biopsy: Prostatic tissue, negative for malignancy. E. Left prostate, mid, core biopsy: Prostatic tissue, negative for malignancy. F. Left prostate, base, core biopsy: Prostatic tissue, negative for malignancy. SJ:dano 10/19/18 MICROSCOPIC DESCRIPTION Slides are reviewed. GROSS DESCRIPTION A - Received is one container designated prostate, right apex. The specimen consists of two elongated fragments of light beltran-white soft tissue measuring 0.5 and 1.5 cm in length and 0.1 cm in diameter. The specimen is totally submitted in one cassette. B - Received is one container designated prostate, right mid. The specimen consists of two elongated fragments of light beltran-white soft tissue measuring 0.4 and 1.5 cm in length and 0.1 cm in diameter. The specimen is totally submitted in one cassette. C - Received is one container designated prostate, right base. The specimen consists of three elongated fragments of light beltran-white soft tissue measuring 0.4 to 1 cm in length and 0.1 cm in diameter. The specimen is totally submitted in one cassette. D - Received is one container designated prostate, left apex. The specimen consists of two elongated fragments of light beltran-white soft tissue measuring 0.3 and 0.4 cm in length and 0.1 cm in diameter. The specimen is totally submitted in one cassette. E - Received is one container designated prostate, left mid. The specimen consists of two elongated fragments of light beltran-white soft tissue measuring 0.5 and 1 cm in length and 0.1 cm in diameter. The specimen is totally submitted in one cassette. F - Received is one container designated prostate, left base. The specimen consists of two elongated fragments of light beltran-white soft tissue measuring 0.7 and 1.2 cm in length and 0.1 cm in diameter. The specimen is totally submitted in one cassette. / SJ:rg 10/18/18 TC:5 CPT: G0146
== END ==
PROVIDERS: Family Provider Family Medicine; PCP Family Medicine; Referring Provider Urology; Visit Provider Urology
DX: R97.20 Elevated prostate specific antigen [PSA] (principal)
CPT/HCPCS: 88305; G0416

== ENCOUNTER → 2018-11-21 | Outpatient (CLI) | payer MEDICARE, OTHER, SELFPAY ==
[2017-11-14 08:01] VITALS: BMI 32.8
[2018-11-21 13:06] LABS: Vitamin B12 501 pg/mL (211-911)
== END | disposition home or self-care (01) ==
LOC: MFPLAB 09:59
PROVIDERS: Family Provider Family Medicine; PCP Family Medicine; Referring Provider Family Medicine; Visit Provider Family Medicine
DX: K14.8 Other diseases of tongue (principal)
CPT/HCPCS: 36415; 82607; 82746

== ENCOUNTER → 2019-10-23 08:33 | Outpatient (CLI) | payer MEDICARE, OTHER, SELFPAY ==
[2017-11-14 08:01] VITALS: BMI 32.8
[2019-10-23 10:40] LABS: Creatinine, Serum 1.46 mg/dL (0.70-1.30); EST Glomerular Filtration Rate 50 mL/min (>60); Est Glom Filt Rate - Afr Amer 60 mL/min (>60)
== END ==
PROVIDERS: PCP Family Medicine; Referring Provider Family Medicine; Visit Provider Otolaryngology
DX: D10.1 Benign neoplasm of tongue (principal)
CPT/HCPCS: 36415; 82565

== ENCOUNTER → 2019-10-24 14:30 | Outpatient (CLI) | payer MEDICARE, OTHER, SELFPAY ==
[2017-11-14 08:01] VITALS: BMI 32.8
--- NOTE | 2019-10-24 14:36 | CT_ITS ---
STUDY: CT SOFT TISSUE NECK WITH CONTRAST REASON FOR EXAM: Male, 74 years old. TONGUE CA RADIATION DOSAGE (If Supplied By Facility): CTDIvol = ( 17.82 ) mGy, DLP = ( 480.68 ) mGycm TECHNIQUE: The patient was scanned in a multi-detector CT scanner. High resolution transaxial imaging was performed following intravenous administration of IV 100mL Isovue-300. Sagittal and coronal images were reconstructed. Individualized dose optimization techniques were used for this CT. COMPARISON: None. FINDINGS: Normal bilateral parotid glands. Normal bilateral spanish speaking nanny spaces. Normal bilateral parapharyngeal spaces. Normal bilateral carotid spaces. Normal bilateral sublingual and submandibular glands and spaces. Normal visualized nasopharynx. Normal retropharyngeal space. Normal perivertebral space. Normal visualized bilateral faucial tonsils. There is asymmetrical soft tissue prominence in the posterior aspect of the right tongue base. 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 Artifacts from the dental work causes artifacts. The visualized cervical lymph nodes (levels I-) are within normal size limits, and maintain normal morphology. There is no demonstrated solid or cystic mass lesion. There is no abnormal contrast enhancement. Normal epiglottis, bilateral vallecula and hypopharynx. The pre-epiglottic and paraglottic adipose spaces are normal. Normal visualized bilateral piriform sinuses, aryepiglottic folds, vocal cords, and arytenoid-cricoid articulations. Normal subglottic trachea. Normal bilateral lobes of the thyroid gland. Normal visualized pulmonary apices. Partial opacification of the right maxillary sinus. There is multilevel degenerative changes of the cervical spine. CT/Soft Tissue Neck WITH Contrast IMPRESSION: Asymmetrical prominence of the tissue in the right posterior tongue base. No evidence of metastatic disease. Electronically Signed: Florencio Deleon, at 15:13 EDT , Service support ,
== END ==
PROVIDERS: PCP Family Medicine; Referring Provider Otolaryngology; Visit Provider Otolaryngology
DX: D10.1 Benign neoplasm of tongue (principal)
CPT/HCPCS: 70491; Q9967

== ENCOUNTER 2019-11-16 08:20 | Day surgery (SDC) | payer MEDICARE, OTHER, SELFPAY ==
[2019-11-16] VITALS (8 sets, daily range): BP systolic 97–129; BP diastolic 59–84; PULSE 46–56; RESP 16; TEMP 35.9–37; O2SAT 93–98; BMI 31.4
--- NOTE | 2019-11-16 | TOBX_PTH ---
PATIENT: JESUS MANUEL MARINA LOC: [facility] U#:[id number] AGE/SX: 74/M ROOM: RE11/16/[address]: Dr. Rodrigue Toledo MD : 1945 BED: DIS: 11/16/2019 SPEC #: [id number] RECD: 11/16/19 10:47 STATUS: ALEX REKaren #: [id number] KESHA: 11/16/19 00:[address]: Rodrigue Toledo DEPT: SURGICAL PATHOLOGY RECD BY: Shana Martins ENTERED: 11/16/19 11:07 SP TYPE: TONGUE BX OTHR DR: Dr. Malik Addisno MD Tissues: A - Tongue, NOS B - Tongue, NOS Procedures: Frozen Section (charge) Surgery Specimen Level IV HEADER OPERATION: Tongue biopsy posterior one-third PRE-OP DIAGNOSIS: Neoplasm of tongue base TISSUE SUBMITTED: A - Tongue biopsy, frozen section, B - Base of tongue neoplasm FROZEN SECTION DIAGNOSIS A. Base of tongue, biopsy: No evidence of malignancy. AM:dano 11/16/19 MICROSCOPIC DIAGNOSIS A. Base of tongue, biopsy: Fragments of benign squamous mucosa with scant benign lymphoid tissue, hemorrhage and focal area of organized hematoma, negative for malignancy. See comment. B. Neoplasm base of tongue, biopsy: Fragments of benign squamous mucosa and underlying minor salivary gland tissue and scant lymphoid tissue, negative for malignancy. See comment. SJ:dano 11/20/19 COMMENT A & B. The lymphoid tissue may represent portion of tonsillar tissue. Clinical correlation and appropriate follow up are necessary. Case has been reviewed in consultation with Dr. Perez who concurs with the above diagnosis. IDC:AM MICROSCOPIC DESCRIPTION Slides are reviewed. GROSS DESCRIPTION A - Received fresh for frozen section diagnosis labeled with the patient's name is a specimen designated base of tongue biopsy. The specimen consists of three pieces of beltran mucosal tissue measuring in aggregate 1 x 0.5 x 0.2 cm. The entire specimen is submitted for frozen section diagnosis in one cassette. / AM:dano 11/16/19 B - Received in fixative is one container labeled with the patient's name and designated neoplasm base of tongue. The specimen consists of multiple irregular fragments of light beltran soft tissue that in aggregate measure 0.6 x 0.2 x 0.1 cm. The specimen is totally submitted in one cassette. / AM:dano 11/19/19 TC:5 CPT: 64469 x2, 14357
--- NOTE | 2019-11-16 08:29 | EKG12_ITS ---
Test Reason : PRE OP Blood Pressure : / mmHG Vent. Rate : 061 BPM Atrial Rate : 061 BPM P-R Int : 186 ms QRS Dur : 092 ms QT Int : 412 ms P-R-T Axes : 000 -15 -01 degrees QTc Int : 414 ms Normal sinus rhythm Normal ECG When compared with ECG of 04-NOV-2011 00:15, No significant change was found Confirmed by LAINE FINE, GALLO ([id number]), multimedia editor BRENDON CINTRON ([id number]) on 11/20/2019 10:19:37 AM Referred By: Rodrigue Toledo Confirmed By:GALLO JANG MD
[2019-11-16 09:07] LABS: Anion Gap 4 (5-15); BUN 25 mg/dL (7-18); BUN/Creat Ratio 17.7 RATIO (10-20); Calcium,Total 8.3 mg/dL (8.5-10.1); Chloride 108 mmol/L (98-107); Creatinine, Serum 1.41 mg/dL (0.70-1.30); EST Glomerular Filtration Rate 52 mL/min (>60); Est Glom Filt Rate - Afr Amer 63 mL/min (>60); Estimated Creatinine Clearance 47.47 ml/min; Glucose 97 mg/dL (74-106); Potassium 4.1 mmol/L (3.5-5.1); Sodium Level 139 mmol/L (136-145)
[2019-11-16] MEDS: Lactated Ringers 1,000 ML 100 ML IV (09:17)
[2019-11-16] MEDS: Lidocaine 4% 50 ML Bottle (10:49)
[2019-11-16] MEDS: Oxymetazoline 0.05% 1 SPRAY SPRAY.BTL 15 SPRAY (10:49)
--- NOTE | 2019-11-16 11:16 | OP.PCM_ITS ---
Problem List (1) Mass of tongue Status: Acute Report of Operation Date of Procedure: 11/16/19 Pre-Operative Diagnosis: Right tongue base mass Post-Operative Diagnosis: Same Surgery/Procedure Performed:: Direct laryngoscopy, biopsy of right tongue base Description of Surgical Findings:: Jorden is a 74-year-old male with complaints of problems with the right side of the tongue and discomfort. Clinically no obvious masses noted but given his complaints CT scan was performed which suggest suggestive of a right tongue base mass. The above procedure was advised for further evaluation of this finding and he is eager to proceed. The risk of coronavirus infection in this setting was discussed and he was agreeable to accept this risk in the interest of pursuing these findings and further investigation of his complaint. The risks, alternatives, potential complications, and benefits were discussed at length and any questions answered to the patient and/or caregiver's satisfaction. Witnessed informed consent was obtained in the office, and the patient and/or caregiver was agreeable to proceed. Procedure went as follows: The patient was identified in the preoperative holding and brought to the operating room, placed under general anesthesia, and intubated. When appropriate anesthesia was obtained, the head of bed was rotated and the patient prepped and draped in usual sterile fashion. The oral cavity was then directly examined in the tongue manually palpated. No discrete mass was noted within the substance of the tongue and particularly with attention to the tongue base. A dental guard was then placed to protect the upper gums and the Dedo laryngoscope then introduced. Direct laryngoscopy was then carried out. The lateral posterior pharyngeal wall mucosa, tonsillar fossa, piriforms, and epiglottis were noted to be normal in appearance. The true and false vocal folds were then brought into view. These were again noted to be normal in appearance. The right tongue base was then visualized where there is noted to be some black-blue lymphoid tissue but no ulceration, friability, or other significant abnormality was apparent. Using a cup forceps the discolored lymphoid tissue and surrounding epithelium was biopsied and sent for frozen section evaluation. This did not reveal any malignancy but rather just benign lymphoid tissues and fibrosis. Additional deeper biopsy of this area was then taken for permanent section. Pledgets were then placed for topical hemostasis with focused electrocautery used to control bleeding presumably secondary to the venous ectasia noted on the biopsy specimen. Excellent control was achieved and the oral cavity was irrigated with saline solution which was then suctioned until clear and an NG tube placed to decomp ress the stomach. The pledgets were then removed and the patient taken out of suspension and returned to anesthesia, was revived, and extubated without complication having tolerated the procedure well. Type of Anesthesia:: General Anesthesiologist: Rodrigue Orlando Special Medications: none Specimen's removed: right tongue base biopsies Drains: none Estimated Blood Loss (mL): 25 mL Fluids Replaced: 900 mL Grafts/Implants Used: none - Complications none - Admit VTE Documentation VTE Present on Admission: No VTE Mechan Device Prophylaxis: SCD's VTE Pharm Prophylaxis ordered?: No
--- NOTE | 2019-11-16 11:16 | DCINST_ITS ---
You will use the following diet at home:: No restrictions Discharge Activity: Return to Normal Activity Call your doctor if your incision/area has: Sudden Increased Bleeding Call your doctor if you observe: Fever of 101 or Higher, Uncontrolled pain Allergies/Adverse Reactions: Allergies Penicillins [PCN] Allergy (Verified 11/16/19 08:54) Hives Medications to take at Discharge meloxicam 15 mg tablet 15 mg PO QDAY 11/14/17 metoprolol succinate 100 mg tablet,extended release 24 hr 100 mg PO BREAKFAST 11/14/17 pantoprazole 40 mg tablet,delayed release 40 mg PO QDAY 11/14/17 potassium chloride 20 mEq tablet,extended release 20 meq PO BID 11/14/17 simvastatin 20 mg tablet 20 mg PO QPM 11/14/17 spironolactone 25 mg tablet 25 mg PO QDAY 11/14/17 tadalafil 5 mg tablet 5 mg PO ONCE 11/14/17 terazosin 5 mg capsule 5 mg PO QDAY 11/14/17 trazodone 100 mg tablet 100 mg PO QDAY 11/14/17 Aspirin [Aspirin EC] 81 mg PO DAILY 11/05/19 Calcium Carbonate/Vitamin D3 [Calcium 250+D Tablet] 1 ea PO DAILY 11/05/19 Metoprolol Succinate [Toprol Xl] 50 mg PO 1800 11/05/19 Turmeric Root Extract [Turmeric] 500 mg PO DAILY 11/05/19 Primary Care Physician: Malik Addison MD [Primary Care Provider] - Test Results: Test results from this visit will be discussed in further detail at your follow- up appointment, if applicable. Please Follow Up With: Rodrigue Toledo MD When: 2 weeks
== END 2019-11-16 12:38 | disposition home or self-care (01) ==
LOC: SDC 08:22 → AC 08:22
PROVIDERS: Anesthesiology; PCP Family Medicine; Referring Provider Otolaryngology; Visit Provider Otolaryngology
PROC: (CPT 31535; principal; 2019-11-16 09:40)
PROC: 0CJS8ZZ Inspection of Larynx, Via Natural or Artificial Opening Endoscopic (ICD-10-PCS; CPT 31575; 2019-11-16 09:40)
DX: D10.1 Benign neoplasm of tongue (principal); E78.5 Hyperlipidemia, unspecified; I10 Essential (primary) hypertension; G47.30 Sleep apnea, unspecified; Z87.891 Personal history of nicotine dependence
CPT/HCPCS: 00320; 31535; 36415; 80048; 87635; 88305; 88331; 93005; G2023; J7120; J2405; U0003

== ENCOUNTER → 2020-09-19 14:19 | Outpatient (CLI) | payer MEDICARE, OTHER, SELFPAY ==
[2019-11-16 08:57] VITALS: BMI 31.4
[2020-09-19 17:42] LABS: Anion Gap 5 (5-15); BUN 32 mg/dL (7-18); BUN/Creat Ratio 22.7 RATIO (10-20); Calcium,Total 8.5 mg/dL (8.5-10.1); Chloride 104 mmol/L (98-107); Cholesterol 152 mg/dL (200); Creatinine, Serum 1.41 mg/dL (0.70-1.30); EST Glomerular Filtration Rate 52 mL/min (>60); Est Glom Filt Rate - Afr Amer 63 mL/min (>60); Glucose 111 mg/dL (74-106); High Density Lipoprotein 36 mg/dL; Potassium 4.5 mmol/L (3.5-5.1); Sodium Level 138 mmol/L (136-145); Triglycerides 193 mg/dL; Very Low Density Lipoprotein 39 mg/dL (5-40)
[2020-09-19 17:43] LABS: Vitamin D,25 Hydroxy 46.2 ng/mL
== END ==
PROVIDERS: PCP Family Medicine; Referring Provider Family Medicine; Visit Provider Family Medicine
DX: Z00.00 Encounter for general adult medical examination without abnormal findings (principal); E55.9 Vitamin D deficiency, unspecified; E78.00 Pure hypercholesterolemia, unspecified
CPT/HCPCS: 36415; 80048; 80061; 82306

== ENCOUNTER → 2021-09-24 | Outpatient (CLI) | payer MEDICARE, OTHER, SELFPAY ==
--- NOTE | 2021-09-24 07:42 | CT_ITS ---
STUDY: CT MAXILLOFACIAL SINUSES REASON FOR EXAM: Male, 75 years old. SINUSITIS RADIATION DOSAGE (If Supplied By Facility): CTDIvol = ( 28.14 ) mGy, DLP = ( 838.10 ) mGycm TECHNIQUE: The patient was scanned in a multi detector CT scanner. High resolution axial imaging was performed without the administration of intravenous contrast material. Sagittal and coronal images were reconstructed. Individualized dose optimization techniques were used for this CT. COMPARISON: None. FINDINGS: FRONTAL SINUSES: There is opacification of the right frontal sinus. ETHMOIDAL SINUSES: Opacification of the right ethmoid sinuses with thinning of the bony septations. MAXILLARY SINUSES: Partial opacification of the right maxillary sinus. There has been prior resection of the medial wall of the right maxillary sinus. The ostiomeatal complex is obstructed on the right side due to the mucosal hypertrophy. SPHENOIDAL SINUSES: Mild degree of mucosal thickening of the right sphenoid sinus. There is patency of the bilateral maxillary infundibuli with normal uncinate processes, ethmoid bullae, and hiatus semilunaris. Normal bilateral middle turbinates. Normal bilateral inferior turbinates. Normal midline nasal septum. Partial opacification of the right nasal airway. The visualized osseous structures are normal. The visualized bilateral orbital contents are normal. CT/Sinus/Facial Bone IMPRESSION: Right frontal, ethmoid, maxillary and sphenoid sinusitis. Partial opacification of the right nasal airway. Electronically Signed: Florencio Deleon MD at 9:08 EDT ,
[2021-09-24 16:20] LABS: ALB/GLOB Ratio 1.1 RATIO (0.9-2.4); AST(SGOT) 18 U/L (15-37); Alanine Aminotransfer ALT/SGPT 18 U/L (16-61); Albumin, Serum 3.6 g/dL (3.2-5.0); Alkaline Phosphatase 61 U/L (45-117); Anion Gap 5 (5-15); BUN 39 mg/dL (7-18); BUN/Creat Ratio 24.8 RATIO (10-20); Chloride 102 mmol/L (98-107); Cholesterol 143 mg/dL (200); Creatinine, Serum 1.57 mg/dL (0.70-1.30); EST Glomerular Filtration Rate 46 mL/min (>60); Est Glom Filt Rate - Afr Amer 55 mL/min (>60); Globulin 3.4 g/dL (2.2-4.2); Glucose 93 mg/dL (74-106); High Density Lipoprotein 37 mg/dL; Potassium 4.8 mmol/L (3.5-5.1); Sodium Level 136 mmol/L (136-145); Triglycerides 75 mg/dL; Very Low Density Lipoprotein 15 mg/dL (5-40)
== END | disposition home or self-care (01) ==
LOC: CT 07:38
PROVIDERS: PCP Family Medicine; Visit Provider Otolaryngology
DX: I10 Essential (primary) hypertension (principal); N40.0 Benign prostatic hyperplasia without lower urinary tract symptoms; J32.8 Other chronic sinusitis
CPT/HCPCS: 36415; 70486; 80053; 80061; 84153; G0103

== ENCOUNTER 2021-10-28 16:53 | Emergency (ER) | payer MEDICARE, OTHER, SELFPAY ==
[2021-10-28 16:54] VITALS: BP 110/73; PULSE 68; RESP 20; TEMP 36.6; O2SAT 96; BMI 30.4
[2021-10-28 17:01] LABS: Bedside Glucose 106 mg/dL (74-106)
--- NOTE | 2021-10-28 17:03 | CT_ITS ---
STUDY: CTA HEAD AND NECK WITH CONTRAST REASON FOR EXAM: Male, 76 years old. vision change RADIATION DOSAGE (If Supplied By Facility): CTDIvol = ( 31.06 ) mGy, DLP = ( 1622.30 ) mGycm TECHNIQUE: CT angiography was performed with a multi-detector CT scanner. Data acquisition was obtained from the skull base through the vertex following intravenous administration of IV 100mL Isovue-370. MIP images were reconstructed from the axial data set. Post-processing of the angiographic images was performed, with multiplanar reformation and 3D reconstruction. Individualized dose optimization techniques were used for this CT. COMPARISON: No relevant priors. FINDINGS: Precontrast: There is no intra-/extra-axial fluid collection, mass effect, or midline shift. The dunn/white matter junction is preserved. Hypoattenuation of periventricular and subcortical white matter suggestive of chronic small vessel ischemic disease. Mild diffuse parenchymal volume loss is noted. There is vascular calcification. The basal cisterns are patent. Partial opacification of the right maxillary sinus is seen. There is complete opacification of the right frontal sinus and right ethmoid air cells. Minimal mucoperiosteal thickening of the left maxillary sinus is noted.. The calvarium is intact. Postcontrast: There is no arterial occlusion, hemodynamically significant stenosis, aneurysm, or dissection in the head and neck. The bilateral ACAs, MCAs, and machinist helper marine are intact. Moderate atherosclerosis of the cavernous and supraclinoid segments of the bilateral intracranial ICAs is seen. Very small soft plaque is noted in the bilateral carotid bulbs causing less than 10% luminal stenosis. The vertebrobasilar system is unremarkable. There is no definite thrombosis in the major dural sinuses. The bilateral parotid and submandibular glands are intact. No cervical adenopathy is seen. A 0.3 cm hypodense nodule is noted in the left lobe of the thyroid, amenable to further evaluation by ultrasound. The airway is patent. Epiglottis is of normal contour and size. The right vallecula is near completely effaced, uncertain etiology. Also, there is medial deviation of the right focal cord with near complete effacement of the right piriform sinus. Upper lungs are clear. There is multilevel cervical spondylosis. CT/CTA Head AND Neck W/ Contrast IMPRESSION: No arterial occlusion or hemodynamically significant stenosis in the head and age. Near complete effacement of the right vallecula. Also, near complete effacement of the right piriform sinus with medial deviation of the right vocal cord. ENT consult for direct visualization is recommended. Electronically Signed: Primitivo Zuniga MD at 18:36 EDT ,
--- NOTE | 2021-10-28 17:04 | EKG12_ITS ---
Test Reason : LOSS OF EYESIGHT Blood Pressure : / mmHG Vent. Rate : 067 BPM Atrial Rate : 067 BPM P-R Int : 178 ms QRS Dur : 072 ms QT Int : 386 ms P-R-T Axes : 016 -18 003 degrees QTc Int : 407 ms Normal sinus rhythm Inferior infarct , age undetermined , cannot be excluded Poor R wave progression Abnormal ECG Confirmed by BRENDAN FINE, ALLEN ([id number]), editor publications BRENDON CINTRON ([id number]) on 10/30/2021 11:38:11 AM Referred By: LEV Confirmed By:ALLEN CARDONA MD
--- NOTE | 2021-10-28 17:06 | EDS_ITS ---
HPI History of Present Illness Chief Complaint: Vision Prob Informant: patient Onset/Context/Timing Onset: Today Context: Sudden Onset Current Severity: Mild Maximum Severity: Severe Narrative Narrative: Patient present secondary to vision change in his right eye. Around noon today he states he had sudden loss of the bottom half of his vision on the right eye. He was not having any pain. Symptoms lasted approximate half an hour and then vision has been improving since that time. He was seen by his eye doctor prior to coming to the emergency room. Had a full eye exam and states the doctor told him his eye was normal and that he should go to the emergency room to be checked noted that the patient's right eyes still dilated from his eye exam on arrival to the ER. He states that his vision is nearly back to baseline at this time. [facility] Medical History (Updated 10/28/21 @ 19:[address] Deepthi Dewitt MD) Benign essential hypertension Breast mass, right GERD (gastroesophageal reflux disease) Gynecomastia Hyperlipidemia Home Medications meloxicam 15 mg tablet 15 mg PO QDAY 11/14/17 [History Last Taken Unknown] metoprolol succinate 100 mg tablet,extended release 24 hr 100 mg PO BREAKFAST 11/14/17 [History Last Taken 11/16/19] pantoprazole 40 mg tablet,delayed release 40 mg PO QDAY 11/14/17 [History Last Taken 11/16/19] potassium chloride 20 mEq tablet,extended release 20 meq PO BID 11/14/17 [History Last Taken Unknown] simvastatin 20 mg tablet 20 mg PO QPM 11/14/17 [History Last Taken Unknown] spironolactone 25 mg tablet 25 mg PO QDAY 11/14/17 [History Last Taken Unknown] tadalafil 5 mg tablet (Cialis) 5 mg PO ONCE 11/14/17 [History Last Taken Unknown] terazosin 5 mg capsule 5 mg PO QDAY 11/14/17 [History Last Taken Unknown] trazodone 100 mg tablet 100 mg PO QDAY 11/14/17 [History Last Taken Unknown] aspirin 81 mg tablet,delayed release 81 mg PO DAILY 11/05/19 [History Last Taken Unknown] calcium carbonate 250 mg-vitamin D3 3.125 mcg (125 unit) tablet 1 ea PO DAILY 11/05/19 [History Last Taken Unknown] metoprolol succinate 50 mg tablet,extended release 24 hr 50 mg PO 1800 11/05/19 [History Last Taken Unknown] turmeric root extract 500 mg capsule 500 mg PO DAILY 11/05/19 [History Last Taken Unknown] acetaminophen 500 mg tablet 500 mg PO Q4H PRN PRN Pain Score 1-510 11/16/19 [Rx Last Taken Unknown] Allergy/AdvReac Type Severity Reaction Status Date / Time Penicillins [PCN] Allergy Hives Verified 10/28/21 16:57 Family History Father Heart disease Hypertension Mother Diabetes Hypertension Sister Breast cancer Heart disease Surgical History H/O transurethral resection of prostate H/O umbilical hernia repair S/P bilateral inguinal hernia repair S/P laparoscopic cholecystectomy Social History Smoking Status: Former smoker alcohol intake: current alcohol intake frequency: holidays/special occasions only ROS ROS ED Constitutional Constitutional ED: Denies chills or fever(s) Eyes Eyes: Reports change in vision right; Denies discharge from eye(s) ENT ENT ED: Denies discharge from eye(s), rhinorrhea or sore throat Cardiovascular Cardiovascular: Denies chest pain or palpitations Respiratory/Chest Respiratory/Chest: Denies cough or dyspnea Gastrointestinal Gastrointestinal: Denies abdominal pain, diarrhea, nausea or vomiting Genitourinary Genitourinary ED: Denies difficulty urinating or dysuria Musculoskeletal Musculoskeletal: Denies back pain or extremity pain Integumentary Denies Abrasions or rash Neurologic Neurologic: Denies headache(s) or weakness Psychiatric Psychiatric: Denies anxiety or depression Allergic/Immunologic Allergic/Immunologic ED: Denies lip swelling or urticaria EXAM Physical Exam Const Vital Signs: 10/28/21 16:54 10/28/21 18:10 Temperature 98 F Temperature Source Oral Pulse Rate 68 62 Respiratory Rate 20 H 20 H Blood Pressure 110/73 105/66 Blood Pressure Mean 85 79 Pulse Ox 96 94 Oxygen Delivery Method Room Air Positive well nourished and well developed General Appearance ED: well developed HEENT Reports normocephalic and head/scalp atraumatic Eyes EOMs intact bilaterally Eyes Narrative: Right pupil dilated from recent eye exam. Neck supple Chest Wall inspection of chest normal and palpation of chest normal Resp normal respiratory effort and clear to auscultation bilaterally Cardio regular rate and regular rhythm GI normal to inspection, nondistended, normoactive bowel sounds Palpation: soft Extremity normal to inspection Neuro oriented x3 and no sensory deficits noted Neuro Narrative: NIH equals 0 at time of my exam. Sensorium / Orientation: alert Motor Exam: strength 5/5 throughout Psych mental status grossly normal Skin no rashes or lesions noted MDM MDM MDM Narrative Medical decision making narrative: EKG and lab work obtained. CTA of the head and neck ordered. Lab Data Attestation: I reviewed the patient's lab results. Labs: Laboratory Results - last 24 hr 10/28/21 10/28/21 10/28/21 16:57 17:00 17:00 WBC 7.5 RBC 4.52 L Hgb 13.7 Hct 40.6 MCV 89.8 MCH 30.3 MCHC 33.7 RDW Std Deviation 44.8 H RDW Coeff of Demetrio 13.5 Plt Count 192 MPV 9.5 Immature Gran % (Auto) 0.300 Neut % (Auto) 57.0 Lymph % (Auto) 32.0 [place] % (Auto) 9.1 Eos % (Auto) 1.1 Baso % (Auto) 0.5 Absolute Neuts (auto) 4.3 Absolute Lymphs (auto) 2.40 Nucleated RBC % 0 Sodium 136 Potassium 4.3 Chloride 103 Carbon Dioxide 28.0 Anion Gap 5 BUN 37 H Creatinine 1.74 H Estim Creat Clear Calc 37.27 Est GFR (MDRD) Af Amer 49 L Est GFR (MDRD) Non-Af 41 L BUN/Creatinine Ratio 21.3 H Glucose 101 Calcium 8.7 POC Glucose 106 Radiography Diagnostic Testing: Clinical Impression(s) from Imaging Studies Head/Neck CTA 10/28/21 17:03 IMPRESSION: No arterial occlusion or hemodynamically significant stenosis in the head and age. Near complete effacement of the right vallecula. Also, near complete effacement of the right piriform sinus with medial deviation of the right vocal cord. ENT consult for direct visualization is recommended. Electronically Signed: Primitivo Zuniga MD at 18:36 EDT , EKG Initial EKG: Attestation: I personally reviewed and interpreted this EKG as follows: Interpretation: Sinus Rhythm (Sinus at 67 with no acute ischemia. Old inferior infarct noted.) Treatment and Re-Evaluation Narrative: Dr. Samuels did call and relate that he had performed the patient's eye exam. He stated that it was unremarkable and the symptoms seem to be consistent with amaurosis fugax. He recommended the typical TIA work-up. Lab work is unremarkable. CTA of the head and neck reveals no significant vascular blockages or stenosis. There is note of effacement of the right vallecula and effacement of the right piriform sinus with medial deviation of the right vocal cord. I spoke with the patient about this. He has been seeing Dr. Penaloza for ENT and is scheduled to come in for a procedure in December to clean out his sinuses. I did recommend contacting Dr. Penaloza prior to this so this can be evaluated prior to any attempts to intubate during his surgery. Patient has an appointment to see his PCP tomorrow and will discuss the findings tonight and possibility of a brain MRI as an outpatient. At this time patient's vision is back to baseline and his NIH has remained 0 throughout his ED stay. Discharge Plan Triage Chief Complaint: Vision Prob ED Provider: Deepthi Dewitt Dx/Rx/DC Orders Clinical Impression: Amaurosis fugax Instructions: ED TIA: Transient Ischemic Attack Prescriptions: No Action metoprolol succinate 100 mg tablet extended release 24 hr 100 mg PO BREAKFAST meloxicam 15 mg tablet 15 mg PO QDAY pantoprazole 40 mg tablet,delayed release (DR/EC) 40 mg PO QDAY simvastatin 20 mg tablet 20 mg PO QPM tadalafil [Cialis] 5 mg tablet 5 mg PO ONCE trazodone 100 mg tablet 100 mg PO QDAY potassium chloride 20 mEq tablet extended release 20 meq PO BID terazosin 5 mg capsule 5 mg PO QDAY spironolactone 25 mg tablet 25 mg PO QDAY aspirin 81 MG tablet,delayed release (DR/EC) 81 mg PO DAILY calcium carbonate-vitamin D3 1 EACH tablet 1 ea PO DAILY turmeric root extract 500 MG capsule 500 mg PO DAILY metoprolol succinate 50 MG tablet extended release 24 hr 50 mg PO 1800 acetaminophen 500 MG tablet 500 mg PO Q4H PRN PRN (Reason: Pain Score 1-5/10) 0RF Primary Care Provider: Malik Addison Referrals: Montana Orellana MD [STAFF PHYSICIAN] - 1-2 Weeks Malik Addison MD [Primary Care Provider] - Keep Ophelia appointment Activity Restrictions/Additional Instructions: As discussed, please contact Dr. Penaloza's office. Your CT scan showed some irregularities around the vocal cords. This should likely be evaluated prior to your upcoming surgery. Disposition Disposition: Home, Self Care
[2021-10-28 17:40] LABS: Absolute Neutrophil Count 4.3 X10^3/uL (2.0-7.7); Basophil# 0.04 X10^3/uL; Basophil% 0.5 % (0-1); Eosinophil# 0.08 X10^3/uL; Eosinophils% 1.1 % (0-5); Hematocrit 40.6 % (40-54); Hemoglobin 13.7 g/dL (13.0-16.5); Mean Corp Hgb Conc 33.7 g/dL (32-36); Mean Corpuscular Hgb 30.3 pg (27.0-32.0); Mean Corpuscular Volume 89.8 fL (80-94); Mean Platelet Vol. 9.5 fl (6.2-12.0); Monocyte# 0.68 X10^3/uL; Monocyte% 9.1 % (0-10); NRBC Flagged by Analyzer 0 % (0-5); Neutrophil # 4.29 X10^3/uL (2.7-7.7); Platelet Count 192 K/mm3 (150-450); RBC Distribution Width CV 13.5 % (11.6-14.6); RBC Distribution Width SD 44.8 fl (35.1-43.9); Red Blood Count 4.52 M/mm3 (4.6-6.2); White Blood Count 7.5 K/mm3 (4.4-11.0)
[2021-10-28 17:45] LABS: Anion Gap 5 (5-15); BUN 37 mg/dL (7-18); BUN/Creat Ratio 21.3 RATIO (10-20); Calcium,Total 8.7 mg/dL (8.5-10.1); Chloride 103 mmol/L (98-107); Creatinine, Serum 1.74 mg/dL (0.70-1.30); EST Glomerular Filtration Rate 41 mL/min (>60); Est Glom Filt Rate - Afr Amer 49 mL/min (>60); Estimated Creatinine Clearance 37.27 ml/min; Glucose 101 mg/dL (74-106); Potassium 4.3 mmol/L (3.5-5.1); Sodium Level 136 mmol/L (136-145)
[2021-10-28 18:10] VITALS: BP 105/66; PULSE 62; RESP 20; O2SAT 94
[2021-10-28 19:38] VITALS: BP 108/68; PULSE 65; RESP 16; O2SAT 95
== END 2021-10-28 19:45 | disposition home or self-care (01) ==
PROVIDERS: Emergency Provider Emergency Medicine; PCP Family Medicine; Visit Provider Emergency Medicine
DX: G45.3 Amaurosis fugax (principal); I10 Essential (primary) hypertension; E78.5 Hyperlipidemia, unspecified; Z87.891 Personal history of nicotine dependence; K21.9 Gastro-esophageal reflux disease without esophagitis
CPT/HCPCS: 70496; 70498; 80048; 82962; 85025; 93005; 99283; Q9967

== ENCOUNTER → 2021-11-17 | Outpatient (CLI) | payer MEDICARE, OTHER, SELFPAY ==
--- NOTE | 2021-11-17 07:18 | MRI_ITS ---
EXAM: MR HEAD WITHOUT AND WITH INTRAVENOUS CONTRAST CLINICAL INDICATION: Hypoglossal dysfunction. Evaluate course of cranial nerve XII. TECHNIQUE: Multiplanar and multisequence MR images of the brain were obtained without and with intravenous contrast. This report was created using [employer] report Quincee technology. CONTRAST: 19 mL of IV Dotarem. COMPARISON: MRI brain with and without contrast 06/24/2020. CT neck with contrast 10/24/2019. CTA neck and head with contrast 10/28/2021. CT maxillofacial 09/24/2021. FINDINGS: BRAIN AND EXTRA-AXIAL SPACES: Enlarged right hypoglossal nerve canal containing lobulated CSF signal intensity which did not enhance with IV contrast. This probably is the source of fatty denervation atrophy of the right lingual muscle. No focal signal abnormalities throughout the brain parenchyma. The dunn matter, white matter, ventricles and cisterns are normal. No abnormal enhancing lesions intraaxially or extra-axially. No intra- or extra-axial hemorrhage. No evidence of acute infarct. No intracranial mass or mass effect. Posterior fossa structures are unremarkable. SELLA: Unremarkable. Normal sella turcica, pituitary gland, infundibular stalk, optic chiasm and hypothalamus. AUDITORY SYSTEM: Unremarkable. The internal auditory canals are patent. BONES/JOINTS: Unremarkable. No discrete lytic or blastic abnormalities. SINUSES: Chronic right maxillary sinusitis with sclerotic wall thickening. The minimal calcifications in the right maxillary sinus are only visible on the CT of the maxillofacial of 09/24/2021. Fungal sinusitis cannot be excluded. Pronounced mucosal thickening of the right ethmoid sinus and right frontal sinus are chronic and unchanged. MASTOID AIR CELLS: Unremarkable as visualized. Clear. ORBITS: Unremarkable as visualized. Both globes, extraocular muscles, optic nerves and retrobulbar fat appear unremarkable. VASCULATURE: Unremarkable as visualized. Normal flow voids in the major intracranial circulation. OPINION: 1. Progression of fatty denervation atrophy of the right lingual muscles when compared to CT neck of 10/24/2019 but unchanged when compared to CT maxillofacial of 09/24/2021 and CTA head and neck of 10/28/2021. The lingual muscles were not included on the MRI of the brain with and without contrast 06/24/2020. This is most likely secondary to the enlarged right hypoglossal nerve canal containing nonenhancing lobulated CSF signal intensity lesion. 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 2. Chronic right maxillary sinusitis and chronic pronounced right ethmoid sinusitis and right frontal sinusitis. These are unchanged. The presence of calcifications in the right maxillary sinusitis on CT of 09/24/2021 raise the possibility of fungal type of sinusitis. Is the patient diabetic? Electronically Signed: Charles Knight MD at 9:44 EDT , MRI/Brain W/WO Contrast IMPRESSION: undefined
[2021-11-17 08:01] LABS: Hematocrit 42.3 % (40-54); Hemoglobin 13.9 g/dL (13.0-16.5); Mean Corp Hgb Conc 32.9 g/dL (32-36); Mean Corpuscular Hgb 30.1 pg (27.0-32.0); Mean Corpuscular Volume 91.6 fL (80-94); Mean Platelet Vol. 9.6 fl (6.2-12.0); Platelet Count 194 K/mm3 (150-450); RBC Distribution Width CV 13.3 % (11.6-14.6); RBC Distribution Width SD 45.1 fl (35.1-43.9); Red Blood Count 4.62 M/mm3 (4.6-6.2); White Blood Count 6.1 K/mm3 (4.4-11.0)
[2021-11-17 08:25] LABS: Anion Gap 7 (5-15); BUN 31 mg/dL (7-18); BUN/Creat Ratio 17.5 RATIO (10-20); Chloride 105 mmol/L (98-107); Creatinine, Serum 1.77 mg/dL (0.70-1.30); EST Glomerular Filtration Rate 40 mL/min (>60); Est Glom Filt Rate - Afr Amer 48 mL/min (>60); Glucose 97 mg/dL (74-106); Potassium 4.1 mmol/L (3.5-5.1); Sodium Level 141 mmol/L (136-145)
--- NOTE | 2021-11-17 08:50 | EKG12_ITS ---
Test Reason : RT DYSP,HYPOGLOSSAL Blood Pressure : / mmHG Vent. Rate : 054 BPM Atrial Rate : 054 BPM P-R Int : 166 ms QRS Dur : 090 ms QT Int : 434 ms P-R-T Axes : -02 -10 006 degrees QTc Int : 411 ms Sinus bradycardia Low voltage QRS (Precordial Leads) Confirmed by BRENDAN FINE, ALLEN ([id number]), editor city BRENDON CINTRON ([id number]) on 11/18/2021 10:47:34 AM Referred By: Montana Orellana Confirmed By:ALLEN CARDONA MD
== END | disposition home or self-care (01) ==
PROVIDERS: PCP Family Medicine; Referring Provider Otolaryngology; Visit Provider Otolaryngology
DX: R13.10 Dysphagia, unspecified (principal); R00.1 Bradycardia, unspecified
CPT/HCPCS: 36415; 70553; 80048; 85027; 93005; A9575

== ENCOUNTER → 2021-12-07 | Outpatient (CLI) | payer MEDICARE, OTHER, SELFPAY | END | disposition home or self-care (01) | LOC: MFPLAB 11:53 | PROVIDERS: PCP Family Medicine; Visit Provider Family Medicine | DX: I87.2 Venous insufficiency (chronic) (peripheral) (principal); Z83.2 Family history of diseases of the blood and blood-forming organs and certain disorders involving the immune mechanism | CPT/HCPCS: 36415; 81241 ==

== ENCOUNTER → 2022-01-25 | Outpatient (CLI) | payer MEDICARE, OTHER, SELFPAY ==
[2022-01-25 11:39] LABS: Hematocrit 45.2 % (40-54); Hemoglobin 14.7 g/dL (13.0-16.5); Mean Corp Hgb Conc 32.5 g/dL (32-36); Mean Corpuscular Hgb 30.2 pg (27.0-32.0); Mean Corpuscular Volume 92.8 fL (80-94); Mean Platelet Vol. 9.4 fl (6.2-12.0); Platelet Count 206 K/mm3 (150-450); RBC Distribution Width CV 13.2 % (11.6-14.6); RBC Distribution Width SD 44.6 fl (35.1-43.9); Red Blood Count 4.87 M/mm3 (4.6-6.2)
[2022-01-25 13:12] LABS: Anion Gap 6 (5-15); BUN 28 mg/dL (7-18); BUN/Creat Ratio 19.3 RATIO (10-20); Calcium,Total 8.8 mg/dL (8.5-10.1); Chloride 102 mmol/L (98-107); Creatinine, Serum 1.45 mg/dL (0.70-1.30); EST Glomerular Filtration Rate 50 mL/min (>60); Est Glom Filt Rate - Afr Amer 61 mL/min (>60); Glucose 99 mg/dL (74-106); Potassium 5.2 mmol/L (3.5-5.1); Sodium Level 137 mmol/L (136-145)
== END | disposition home or self-care (01) ==
PROVIDERS: PCP Family Medicine; Visit Provider Otolaryngology
DX: Z01.818 Encounter for other preprocedural examination (principal)
CPT/HCPCS: 36415; 80048; 85027

== ENCOUNTER → 2022-02-03 | Outpatient (CLI) | payer MEDICARE, OTHER, SELFPAY ==
--- NOTE | 2022-02-02 14:00 | NASAL_PTH ---
PATIENT: JESUS MANUEL MARINA LOC: [facility] U#:[id number] AGE/SX: 76/M ROOM: RE02/03/[address]: Dr. Raji Orellana MD : [id number] BED: DIS: 02/03/2022 SPEC #: [id number] RECD: 02/03/22 15:06 STATUS: ALEX AVALOSKaren #: [id number] KESHA: 02/02/22 14:[address]: Raji Orellana DEPT: SURGICAL PATHOLOGY RECD BY: Geovanna Holman ENTERED: 02/04/22 08:18 SP TYPE: NASAL SPEC OTHR DR: Dr. Malik Addison MD [facility] Tissues: A - Ethmoid sinus, NOS B - Ethmoid sinus, NOS Procedures: Decalcification bone/plaque Surgery Specimen Level IV HEADER OPERATION: Functional endoscopic sinus surgery, septoplasty, turbinate resection PRE-OP DIAGNOSIS: Chronic sinusitis, deviated nasal septum, hypertrophy of nasal turbinates TISSUE SUBMITTED: A ? Right sinus contents, B ? Left sinus contents MICROSCOPIC DIAGNOSIS A. Right sinus contents: Fragments of respiratory mucosa with moderate to marked chronic inflammation, bone and turbinate. See comment. B. Left sinus contents: Fragments of respiratory mucosa with chronic inflammation, bone and turbinate. See comment. SJ:rg 02/10/2022 COMMENT A & B. Bony tissue shows reactive changes. MICROSCOPIC DESCRIPTION Slides are reviewed. GROSS DESCRIPTION A - Received in fixative is one container labeled with the patient's name and designated right sinus contents. The specimen consists of multiple irregular fragments of beltran-pink soft tissue mixed with fragments of bone and turbinate that in aggregate measure 3 x 2.5 x 0.3 cm. The specimen is totally submitted in one cassette after decalcification. B - Received in fixative is one container labeled with the patient's name and designated left sinus contents. The specimen consists of multiple irregular fragments of beltran-pink soft tissue mixed with fragments of bone that in aggregate measure 1 x 0.5 x 0.3 cm. Also present is a piece of turbinate measuring 2.5 x 0.6 x 0.5 cm. The specimen is totally submitted in one cassette after decalcification. / SJ:dano 02/04/2022 TC:5 CPT: 66949 x2, 68187 x2
== END | disposition home or self-care (01) ==
LOC: LABSPEC 15:29
PROVIDERS: PCP Family Medicine; Referring Provider Otolaryngology; Visit Provider Otolaryngology
DX: J32.9 Chronic sinusitis, unspecified (principal); J34.2 Deviated nasal septum
CPT/HCPCS: 88305; 88311

== ENCOUNTER → 2022-09-09 | Outpatient (CLI) | payer MEDICARE, OTHER, SELFPAY | END | disposition home or self-care (01) | LOC: LABSPEC 15:24 | PROVIDERS: PCP Family Medicine; Visit Provider Otolaryngology | DX: J32.8 Other chronic sinusitis (principal) | CPT/HCPCS: 87070; 87205 ==

== ENCOUNTER → 2022-09-30 | Outpatient (CLI) | payer MEDICARE, OTHER, SELFPAY ==
[2022-09-30 17:42] LABS: Absolute Neutrophil Count 4.7 X10^3/uL (2.0-7.7); Basophil# 0.04 X10^3/uL; Basophil% 0.5 % (0-1); Eosinophil# 0.08 X10^3/uL; Eosinophils% 1.1 % (0-5); Hematocrit 45.1 % (40-54); Hemoglobin 14.4 g/dL (13.0-16.5); Lymphocyte % 26.6 % (19-41); Mean Corp Hgb Conc 31.9 g/dL (32-36); Mean Corpuscular Hgb 29.6 pg (27.0-32.0); Mean Corpuscular Volume 92.6 fL (80-94); Mean Platelet Vol. 10.2 fl (6.2-12.0); Monocyte# 0.62 X10^3/uL; Monocyte% 8.3 % (0-10); NRBC Flagged by Analyzer 0 % (0-5); Neutrophil # 4.74 X10^3/uL (2.7-7.7); Neutrophil % 63.1 % (47-70); Platelet Count 210 K/mm3 (150-450); RBC Distribution Width CV 13.6 % (11.6-14.6); RBC Distribution Width SD 46.3 fl (35.1-43.9); Red Blood Count 4.87 M/mm3 (4.6-6.2); White Blood Count 7.5 K/mm3 (4.4-11.0)
[2022-09-30 18:17] LABS: Anion Gap 6 (5-15); BUN 29 mg/dL (7-18); Calcium,Total 9.2 mg/dL (8.5-10.1); Chloride 102 mmol/L (98-107); Creatinine, Serum 1.45 mg/dL (0.70-1.30); EST Glomerular Filtration Rate 50 mL/min (>60); Est Glom Filt Rate - Afr Amer 60 mL/min (>60); Glucose 85 mg/dL (74-106); Potassium 4.6 mmol/L (3.5-5.1); Sodium Level 138 mmol/L (136-145)
== END | disposition home or self-care (01) ==
LOC: MFPLAB 14:42
PROVIDERS: Urology; PCP Family Medicine; Visit Provider Family Medicine
DX: Z01.818 Encounter for other preprocedural examination (principal); R97.20 Elevated prostate specific antigen [PSA]
CPT/HCPCS: 36415; 80048; 84153; 85025

== ENCOUNTER → 2023-02-17 | Outpatient (CLI) | payer MEDICARE, OTHER, SELFPAY | END | disposition home or self-care (01) | PROVIDERS: PCP Family Medicine; Referring Provider Urology; Visit Provider Urology | DX: R97.20 Elevated prostate specific antigen [PSA] (principal) | CPT/HCPCS: 36415; 84153 ==

== ENCOUNTER → 2023-02-21 | Outpatient (CLI) | payer MEDICARE, OTHER, SELFPAY | END | disposition home or self-care (01) | LOC: LABSPEC 10:19 | PROVIDERS: PCP Family Medicine; Referring Provider Otolaryngology; Visit Provider Otolaryngology | DX: J32.8 Other chronic sinusitis (principal) | CPT/HCPCS: 87070; 87205 ==

== ENCOUNTER → 2023-09-06 | Outpatient (CLI) | payer MEDICARE, OTHER, SELFPAY ==
[2023-09-06 12:59] LABS: PSA,Total- Diagnostic 6.62 ng/mL (0.0-4.0)
== END | disposition home or self-care (01) ==
LOC: MFPLAB 11:15
PROVIDERS: PCP Family Medicine; Visit Provider Urology
DX: N40.1 Benign prostatic hyperplasia with lower urinary tract symptoms (principal)
CPT/HCPCS: 36415; 84153

== ENCOUNTER 2023-09-29 08:19 | Outpatient (CLI) | payer MEDICARE, OTHER, SELFPAY ==
[2023-09-29 10:48] LABS: Anion Gap 7 (5-15); BUN 42 mg/dL (7-18); BUN/Creat Ratio 26.1 RATIO (10-20); Calcium,Total 9.1 mg/dL (8.5-10.1); Chloride 105 mmol/L (98-107); Cholesterol 154 mg/dL (200); Creatinine, Serum 1.61 mg/dL (0.70-1.30); EST Glomerular Filtration Rate 44 mL/min (>60); Est Glom Filt Rate - Afr Amer 53 mL/min (>60); Glucose 94 mg/dL (74-106); High Density Lipoprotein 43 mg/dL; Potassium 4.8 mmol/L (3.5-5.1); Sodium Level 137 mmol/L (136-145); Triglycerides 100 mg/dL; Very Low Density Lipoprotein 20 mg/dL (5-40)
== END 2023-09-29 23:59 | disposition home or self-care (01) ==
LOC: MTLAB 08:20
PROVIDERS: PCP Family Medicine; Referring Provider Family Medicine; Visit Provider Family Medicine
DX: Z00.00 Encounter for general adult medical examination without abnormal findings (principal); E78.00 Pure hypercholesterolemia, unspecified
CPT/HCPCS: 36415; 80048; 80061

== ENCOUNTER → 2024-01-30 | Outpatient (CLI) | payer MEDICARE, OTHER, SELFPAY ==
[2024-01-30 10:32] LABS: Anion Gap 5 (5-15); BUN 33 mg/dL (7-18); BUN/Creat Ratio 22.3 RATIO (10-20); Calcium,Total 9.5 mg/dL (8.5-10.1); Chloride 104 mmol/L (98-107); Creatinine, Serum 1.48 mg/dL (0.70-1.30); EST Glomerular Filtration Rate 49 mL/min (>60); Est Glom Filt Rate - Afr Amer 59 mL/min (>60); Glucose 95 mg/dL (74-106); Potassium 4.5 mmol/L (3.5-5.1); Sodium Level 136 mmol/L (136-145)
[2024-01-30 10:58] LABS: PSA,Total- Diagnostic 5.03 ng/mL (0.0-4.0)
== END | disposition home or self-care (01) ==
LOC: MFPLAB 08:10
PROVIDERS: Urology; PCP Family Medicine; Visit Provider Family Medicine
DX: N40.0 Benign prostatic hyperplasia without lower urinary tract symptoms (principal)
CPT/HCPCS: 36415; 80048; 84153

== ENCOUNTER → 2024-09-07 | Outpatient (CLI) | payer MEDICARE, OTHER, SELFPAY | END | disposition home or self-care (01) | PROVIDERS: PCP Family Medicine; Referring Provider Otolaryngology; Visit Provider Otolaryngology | DX: J32.9 Chronic sinusitis, unspecified (principal) | CPT/HCPCS: 87070; 87077; 87186; 87205 ==

== ENCOUNTER → 2024-09-28 | Outpatient (CLI) | payer MEDICARE, OTHER, SELFPAY ==
[2024-09-28 11:00] LABS: Anion Gap 13 (5-15); BUN 30 mg/dL (4-19); BUN/Creat Ratio 18.3 RATIO (10-20); Calcium,Total 8.8 mg/dL (7.6-11.0); Carbon Dioxide 21.6 mmol/L (21.0-32.0); Chloride 103 mmol/L (98-108); Creatinine, Serum 1.63 mg/dL (0.70-1.20); EST Glomerular Filtration Rate 42 (>60); Glucose 100 mg/dL (70-99); Potassium 4.9 mmol/L (3.3-5.1); Sodium Level 137 mmol/L (133-145)
[2024-09-28 11:31] LABS: Cholesterol 157 mg/dL (<=200); High Density Lipoprotein 41 mg/dL; Low Density Lipoprotein Calc. 106 mg/dL; Triglycerides 52 mg/dL; Very Low Density Lipoprotein 10 mg/dL (5-40); cholesterol:hdl ratio screen 3.86
[2024-09-28 12:00] LABS: PSA,Total- Diagnostic 4.32 ng/mL (0.00-4.00)
== END | disposition home or self-care (01) ==
PROVIDERS: Nurse Practitioner; PCP Family Medicine; Referring Provider Family Medicine; Visit Provider Family Medicine
DX: R97.20 Elevated prostate specific antigen [PSA] (principal); I10 Essential (primary) hypertension
CPT/HCPCS: 36415; 80048; 80061; 84153

== ENCOUNTER → 2024-10-08 | Outpatient (CLI) | payer MEDICARE, OTHER, SELFPAY ==
--- NOTE | 2024-10-08 12:27 | STRESSREP ---
Stress Test Report Date: 10/08/2024 Procedure: Exercise tolerance test/imaging study Indications: Chest pain Consent: Per the patient Procedure: The patient exercised on a Artur protocol for 4 minutes and 35 seconds achieving a peak heart rate of 162 bpm (115% predicted maximal heart rate) with a peak blood pressure 172/84 mmHg and a peak MET capacity of 7.0 METs. The baseline ECG demonstrated sinus rhythm. The peak exercise ECG did not show any ischemic changes. There were no cardiac dysrhythmias pretest, during exercise, or recovery. The functional capacity was considered average for age. There was no complaint of chest discomfort during exercise or recovery. The examination was discontinued secondary to target heart rate being achieved and dyspnea. The patient was injected with 14.3 mCi of technetium 99m Cardiolite and subsequently rest SPECT Cardiolite nuclear imaging was obtained in the horizontal long, vertical long, and short axis views. Post-exercise, the patient was injected with 45 mCi of technetium 99m Cardiolite and subsequently stress SPECT Cardiolite nuclear imaging was obtained in the horizontal long, vertical long, and short axis views. A gated Cardiolite study at peak stress was obtained. Rest and stress SPECT Cardiolite nuclear imaging status post realignment, normalization, and attenuation correction, demonstrates the appearance of relative uniform tracer uptake and myocardial perfusion appearing within normal limits. There is end systolic thickening and brightening. The gated Cardiolite study demonstrates myocardial thickening and inward wall motion. The reported LVEF is 66%. Impression: 1. Technically adequate (percent predicted maximal heart rate greater than 85%) exercise tolerance test 2. Peak exercise ECG with no diagnostic ischemic changes 3. There were no cardiac dysrhythmias pretest, during exercise, or recovery 4. Rest and stress SPECT Cardiolite nuclear imaging demonstrate relative uniform tracer uptake and myocardial perfusion appearing within normal limits. 5. The gated Cardiolite study reports an LVEF of 66%. This note was generated with Snaptalentation software. It may contain incorrect words, spelling, and punctuation that were not noted in checking the note before signing.
== END | disposition home or self-care (01) ==
PROVIDERS: PCP Family Medicine; Referring Provider Family Medicine; Visit Provider Family Medicine
DX: R07.9 Chest pain, unspecified (principal)
CPT/HCPCS: 78452; 93017; A9500; A4216

== ENCOUNTER → 2025-02-21 | Outpatient (CLI) | payer MEDICARE, OTHER, SELFPAY ==
[2025-02-21 13:09] LABS: Cholesterol 160 mg/dL (<=200); Low Density Lipoprotein Calc. 93 mg/dL; Triglycerides 103 mg/dL; Very Low Density Lipoprotein 21 mg/dL (5-40); cholesterol:hdl ratio screen 3.43
[2025-02-21 13:32] LABS: AST(SGOT) 17 U/L (<=37); Alanine Aminotransfer ALT/SGPT 8 U/L (<=46); Albumin, Serum 4.2 g/dL (3.4-4.8); Alkaline Phosphatase 59 U/L (40-129); Anion Gap 10 (5-15); BUN 30 mg/dL (4-19); BUN/Creat Ratio 20.9 RATIO (10-20); Calcium,Total 9.7 mg/dL (7.6-11.0); Carbon Dioxide 25.2 mmol/L (21.0-32.0); Chloride 104 mmol/L (98-108); Globulin 2.7 g/dL (2.2-4.2); Glucose 99 mg/dL (70-99); Potassium 4.9 mmol/L (3.3-5.1)
== END | disposition home or self-care (01) ==
LOC: MFPLAB 10:10
PROVIDERS: PCP Family Medicine; Visit Provider Family Medicine
DX: I10 Essential (primary) hypertension (principal); N28.9 Disorder of kidney and ureter, unspecified
CPT/HCPCS: 36415; 80053; 80061